=== PATIENT | female | born 1955 | race Caucasian/White ===

== ENCOUNTER 2020-03-20 06:11 | Day surgery (SDC) | payer MEDICARE, OTHER ==
--- OUTSIDE RECORDS SUMMARY | 2020-02-28 19:10 | XMS ---
:1955 Author Organization [facility] Care Team Providers Name Role Phone JEREMY FIORE Unavailable Unavailable PAOLOCORBIN BRIGITTE, BRIGITTE Unavailable Unavailable Re-disclosure Warning The records that you are about to access may contain information from federally- assisted alcohol or drug abuse programs. If such information is present, then the following federally mandated warning applies: This information has been disclosed to you from records protected by federal confidentiality rules (42 CFR part 2). The federal rules prohibit you from making any further disclosure of this information unless further disclosure is expressly permitted by the written consent of the person to whom it pertains or as otherwise permitted by 42 CFR part 2. A general authorization for the release of medical or other information is NOT sufficient for this purpose. The Federal rules restrict any use of the information to criminally investigate or prosecute any alcohol or drug abuse patient.The records that you are about to access may contain highly sensitive health information, the redisclosure of which is protected by Article 27-F of the [facility] Public Health law. If you continue you may haveaccess to information: Regarding HIV / AIDS; Provided by facilities licensed or operated by the [facility] Office of Mental Health; or Provided by the [facility] Office for People With Developmental Disabilities. If such information is present, then the following [facility] mandated warning applies: This information has been disclosed to you from confidential records which are protected by state law. State law prohibits you from making any further disclosure of this information without the specific written consent of the person to whom it pertains, or as otherwise permitted by law. Any unauthorized further disclosure in violation of state law may result in a fine or mcc sentence or both. A general authorization for the release of medical or other information is NOT sufficient authorization for further disclosure. Allergies and Adverse Reactions Type Description Substance Reaction Status Data Source(s ) Drug allergy No Known Drug No Known Drug [facility] No Known No Known Allergies No Known eCW3 ( [place] [facility]) No Known No Known Allergies No Known eCW3 ( [place] [facility]) No Known No Known Allergies No Known eCW3 ( [place] Allergies Allergies [facility]) No Known No Known Allergies No Known eCW3 ( [place] All[facility] Allerg[facility]) No Known No Known Allergies No Known eCW3 ( [place] All[facility] All[facility]) No Known No Known Allergies No Known eCW3 ( [place] Allergies Allergies [facility]) Encounters Encounter Providers Location Date Indications Data Source(s ) Outpatient [facility] 02/08/2019 eCW3 [facility] A28 AM EDT - Care) 02/08/2019 12:00:00 AM EDT (ROV) Regular [facility] 02/01/2019 eCW3 ([facility]) 02/01/2019 12:00:00 AM EDT (SD Sick) Same [facility] 01/10/2019 eCW3 ( [place] [facility] 12[facility]00 [facility] A28 AM EDT - Care) 01/10/2019 12:00:00 AM EDT Outpatient [facility] 12/15/2018 eCW3 ([facility] 12[facility]:00 [facility] A28 AM EDT - Care) 12/15/2018 12:00:00 AM EDT Outpatient Attender: BRIGITTE Ashton 11/04/2018 [place] [facility] 12:07:00 Medical Anay BRIGGSAdmitter: PM EDT BRIGITTE BRIGGSReferrer: JEREMY FIORE Outpatient [facility] 10/25/2018 eCW3 ([facility] 12:00:00 [facility] A28 AM EDT - Care) 10/25/2018 12:00:00 AM EDT Outpatient [facility] 08/17/2018 eCW3 ([facility] 12[facility]:00 [facility] A28 AM EDT - Care) 08/17/2018 12:00:00 AM EDT Medications Medication Brand Start Product Dose Route Administrative Pharmacy dev Indications Reaction Description Data Name Date Form Instructions Instructions Source(s) Diclofenac Diclof 1.0 active Diclofen ac eCW3 Sodium 0.03 enac 2019 {appl Sodium 3 % ( [place] MG/MG Sodium 12:00: icati [facility] Topical Gel 3 % 00 AM on} [facility] Diclofenac EDT Care) Sodium 3 % Diclofenac Diclof 1.0 active Diclofen ac eCW3 Sodium 0.03 enac 2019 {appl Sodium 3 % ( [place] MG/MG Sodium 12:00: icati [facility] Topical Gel 3 % 00 AM on} [facility] Diclofenac EDT Care) Sodium 3 % Diclofenac Diclof 1.0 active Diclofen ac eCW3 Sodium 0.03 enac 2019 {appl Sodium 3 % ( [place] MG/MG Sodium 12:00: icati [facility] Topical Gel 3 % 00 AM on} [facility] Diclofenac EDT Care) Sodium 3 % Diclofenac Diclof 1.0 active Diclofen ac eCW3 Sodium 0.03 enac 2019 {appl Sodium 3 % ( [place] MG/MG Sodium 12:00: icati [facility] Topical Gel 3 % 00 AM on} [facility] Diclofenac EDT Care) Sodium 3 % Ondansetron Ondans 1.0 suspend Ondans etron eCW3 4 MG Oral etron 2018 {tabl ed HCl 4 MG ([facility] Tablet HCl 4 12:00: et_as [facility] Ondansetron MG 00 AM _need Health HCl 4 MG EDT ed} Care) Ranitidine Raniti 1.0 suspend Ranitid ine eCW3 150 MG Oral dine 2018 {tabl ed HCl 150 MG ( [place] Tablet HCl 12:00: et_as [facility] Ranitidine 150 MG 00 AM _need Healt h HCl 150 MG EDT ed} Care) Ondansetron Ondans 1.0 suspend Ondans etron eCW3 4 MG Oral etron 2018 {tabl ed HCl 4 MG ([facility] Tablet HCl 4 12:00: et_as [facility] Ondansetron MG 00 AM _need Health HCl 4 MG EDT ed} Care) Ranitidine Raniti .0 active Ranitidi ne eCW3 150 MG Oral dine 2019 {tabl HCl 150 MG ( [place] Tablet HCl 12:00: et_as [facility] Ranitidine 150 MG 00 AM _need Healt h HCl 150 MG EDT ed} Care) Ondansetron Ondans .0 suspend Ondans etron eCW3 4 MG Oral etron 2019 {tabl ed HCl 4 MG ([facility] Tablet HCl 4 12:00: et_as [facility] Ondansetron MG 00 AM _need Health HCl 4 MG EDT ed} Care) Ranitidine UNK .0 suspend Ranitidin e eCW3 HCl 150 MG 2019 {tabl ed HCl 150 MG ([facility] 12:00: et_as [facility] 00 AM _need Health EDT ed} Care) Ondansetron Ondans .0 suspend Ondans etron eCW3 4 MG Oral etron 2018 {tabl ed HCl 4 MG ([facility] Tablet HCl 4 12:00: et_as [facility] Ondansetron MG 00 AM _need Health HCl 4 MG EDT ed} Care) Ranitidine UNK .0 suspend Ranitidin e eCW3 HCl 150 MG 2019 {tabl ed HCl 150 MG ([facility] 12:00: et_as [facility] 00 AM _need Health EDT ed} Care) Ondansetron Ondans .0 suspend Ondans etron eCW3 4 MG Oral etron 2019 {tabl ed HCl 4 MG ([facility] Tablet HCl 4 12:00: et_as [facility] Ondansetron MG 00 AM _need Health HCl 4 MG EDT ed} Care) Ranitidine Raniti .0 suspend Ranitid ine eCW3 150 MG Oral dine 2019 {tabl ed HCl 150 MG ( [place] Tablet HCl 12:00: et_as [facility] Ranitidine 150 MG 00 AM _need Healt h HCl 150 MG EDT ed} Care) Diclofenac Diclof .0 active Diclofen ac eCW3 Sodium 50 enac 2019 {tabl Sodium 50 mg ( [place] MG Delayed Sodium 12:00: et_wi [facility] Release 50 mg 00 AM th_fo Health Oral Tablet EDT od_or Care) Diclofenac _milk Sodium 50 } mg Diclofenac Diclof .0 active Diclofen ac eCW3 Sodium 50 enac 2019 {tabl Sodium 50 mg ( [place] MG Delayed Sodium 12:00: et_wi [facility] Release 50 mg 00 AM th_fo Health Oral Tablet EDT od_or Care) Diclofenac _milk Sodium 50 } mg Diclofenac Diclof .0 active Diclofen ac eCW3 Sodium 50 enac 2019 {tabl Sodium 50 mg ( [place] MG Delayed Sodium 12:00: et_wi [facility] Release 50 mg 00 AM th_fo Health Oral Tablet EDT od_or Care) Diclofenac _milk Sodium 50 } mg Diclofenac Diclof .0 active Diclofen ac eCW3 Sodium 50 enac 2019 {tabl Sodium 50 mg ( [place] MG Delayed Sodium 12:00: et_wi [facility] Release 50 mg 00 AM th_fo Health Oral Tablet EDT od_or Care) Diclofenac _milk Sodium 50 } mg Diclofenac Diclof .0 active Diclofen ac eCW3 Sodium 50 enac 2019 {tabl Sodium 50 mg ( [place] MG Delayed Sodium 12:00: et_wi [facility] Release 50 mg 00 AM th_fo Health Oral Tablet EDT od_or Care) Diclofenac _milk Sodium 50 } mg Diclofenac Diclof .0 active Diclofen ac eCW3 Sodium 50 enac 2019 {tabl Sodium 50 mg ( [place] MG Delayed Sodium 12:00: et_wi [facility] Release 50 mg 00 AM th_fo Health Oral Tablet EDT od_or Care) Diclofenac _milk Sodium 50 } mg 12 HR Mucine .0 suspend Mucinex 600 eCW3 Guaifenesin x 600 2018 {tabl ed MG ([facility] 600 MG MG 12:00: et_as [facility] Extended 00 AM _need Health Release EST ed} Care) Oral Tablet [Mucinex] Mucinex 600 MG 12 HR Mucine .0 suspend Mucinex 600 eCW3 Guaifenesin x 600 2018 {tabl ed MG ([facility] 600 MG MG 12:00: et_as [facility] Extended 00 AM _need Health Release EST ed} Care) Oral Tablet [Mucinex] Mucinex 600 MG 12 HR Mucine .0 suspend Mucinex 600 eCW3 Guaifenesin x 600 2018 {tabl ed MG ([facility] 600 MG MG 12:00: et_as [facility] Extended 00 AM _need Health Release EST ed} Care) Oral Tablet [Mucinex] Mucinex 600 MG Mucinex 600 Mucine .0 suspend Mucine x 600 eCW3 MG x 600 2018 {tabl ed MG ([place] MG 12:00: et_as [facility] 00 AM _need Health EST ed} Care) 12 HR Mucine .0 suspend Mucinex 600 eCW3 Guaifenesin x 600 2018 {tabl ed MG ([facility] 600 MG MG 12:00: et_as [facility] Extended 00 AM _need Health Release EST ed} Care) Oral Tablet [Mucinex] Mucinex 600 MG 12 HR Mucine .0 suspend Mucinex 600 eCW3 Guaifenesin x 600 2018 {tabl ed MG ([facility] 600 MG MG 12:00: et_as [facility] Extended 00 AM _need Health Release EST ed} Care) Oral Tablet [Mucinex] Mucinex 600 MG Cepacol UNK .0 suspend Cepacol Sore eCW3 Sore Throat 2018 {loze ed Throat ([facility] 15-3.6 MG 12:00: nge_a 15-3.6 MG Ri dayna 00 AM s_nee Health EST ded} Care) Cepacol UNK .0 suspend Cepacol Sore eCW3 Sore Throat 2018 {loze ed Throat ([facility] 15-3.6 MG 12:00: nge_a 15-3.6 MG Ri dayna 00 AM s_nee Health EST ded} Care) Benzocaine Cepaco .0 suspend Cepacol Sore eCW3 15 MG / l Sore 2018 {loze ed Throat ([place] Menthol 3.6 Throat 12:00: nge_a 15-3.6 M G [facility] Oral 15-3.6 00 AM s_nee Health Lozenge MG EST ded} Care) [Cepacol Sore Throat Pain Relief] Cepacol Sore Throat 15-3.6 MG Cepacol UNK .0 suspend Cepacol Sore eCW3 Sore Throat 2018 {loze ed Throat ([facility] 15-3.6 MG 12:00: nge_a 15-3.6 MG Ri dayna 00 AM s_nee Health EST ded} Care) Cepacol UNK .0 suspend Cepacol Sore eCW3 Sore Throat 2018 {loze ed Throat ([facility] 15-3.6 MG 12:00: nge_a 15-3.6 MG Ri dayna 00 AM s_nee Health EST ded} Care) Cepacol UNK .0 suspend Cepacol Sore eCW3 Sore Throat 2018 {loze ed Throat ([facility] 15-3.6 MG 12:00: nge_a 15-3.6 MG Ri dayna 00 AM s_nee Health EST ded} Care) Acetaminoph UNK .0 suspend Acetamin ophe eCW3 en 650 MG 2016 {tabl ed n 650 MG ([facility] 12:00: et_as [facility] 00 AM _need Health EDT ed} Care) Loratadine Clarit .0 suspend Clariti n 10 eCW3 10 MG Oral in 2016 {tabl ed mg ([place] Tablet mg 12:00: et} [facility] [Claritin] 00 AM Health Claritin 10 EDT Care) mg Loratadine Clarit .0 suspend Clariti n 10 eCW3 10 MG Oral in 2016 {tabl ed mg ([place] Tablet mg 12:00: et} [facility] [Claritin] 00 AM Health Claritin 10 EDT Care) mg Acetaminoph UNK .0 suspend Acetamin ophe eCW3 en 650 MG 2017 {tabl ed n 650 MG ([facility] 12:00: et_as [facility] 00 AM _need Health EDT ed} Care) Loratadine Clarit .0 suspend Clariti n 10 eCW3 10 MG Oral in 2016 {tabl ed mg ([place] Tablet mg 12:00: et} [facility] [Claritin] 00 AM Health Claritin 10 EDT Care) mg Acetaminoph UNK .0 active Acetamino phe eCW3 en 650 MG 2017 {tabl n 650 MG ([facility] 12:00: et_as [facility] 00 AM _need Health EDT ed} Care) Acetaminoph UNK .0 active Acetamino phe eCW3 en 650 MG 2017 {tabl n 650 MG ([facility] 12:00: et_as [facility] 00 AM _need Health EDT ed} Care) Loratadine Clarit .0 suspend Clariti n 10 eCW3 10 MG Oral in 2016 {tabl ed mg ([place] Tablet mg 12:00: et} [facility] [Claritin] 00 AM Health Claritin 10 EDT Care) mg Acetaminoph UNK .0 suspend Acetamin ophe eCW3 en 650 MG 2017 {tabl ed n 650 MG ([facility] 12:00: et_as [facility] 00 AM _need Health EDT ed} Care) Loratadine Clarit .0 suspend Clariti n 10 eCW3 10 MG Oral in 2016 {tabl ed mg ([place] Tablet mg 12:00: et} [facility] [Claritin] 00 AM Health Claritin 10 EDT Care) mg Acetaminoph UNK .0 suspend Acetamin ophe eCW3 en 650 MG 2017 {tabl ed n 650 MG ([facility] 12:00: et_as [facility] 00 AM _need Health EDT ed} Care) Loratadine Clarit .0 suspend Clariti n 10 eCW3 10 MG Oral in 2016 {tabl ed mg ([place] Tablet mg 12:00: et} [facility] [Claritin] 00 AM Health Claritin 10 EDT Care) mg COMPRESSION UNK 01/12/ suspend COMPRESS ION eCW3 STOCKINGS 2017 ed STOCKINGS 22 ([facility] 22 MMHG 22 12:00: MMHG 22 mmhg [facility] mmhg 00 AM Health EDT Care) COMPRESSION UNK 01/12/ suspend COMPRESS ION eCW3 STOCKINGS 2017 ed STOCKINGS 22 ([facility] 22 MMHG 22 12:00: MMHG 22 mmhg [facility] mmhg 00 AM Health EDT Care) COMPRESSION UNK 01/12/ suspend COMPRESS ION eCW3 STOCKINGS 2017 ed STOCKINGS 22 ([facility] 22 MMHG 22 12:00: MMHG 22 mmhg [facility] mmhg 00 AM Health EDT Care) COMPRESSION UNK 01/12/ suspend COMPRESS ION eCW3 STOCKINGS 2017 ed STOCKINGS 22 ([facility] 22 MMHG 22 12:00: MMHG 22 mmhg [facility] mmhg 00 AM Health EDT Care) COMPRESSION UNK 01/12/ suspend COMPRESS ION eCW3 STOCKINGS 2017 ed STOCKINGS 22 ([facility] 22 MMHG 22 12:00: MMHG 22 mmhg [facility] mmhg 00 AM Health EDT Care) COMPRESSION UNK 01/12/ suspend COMPRESS ION eCW3 STOCKINGS 2017 ed STOCKINGS 22 ([facility] 22 MMHG 22 12:00: MMHG 22 mmhg [facility] mmhg 00 AM Health EDT Care) Amoxicillin Amoxic 16/ 2.0 suspend Amoxic illin eCW3 500 MG Oral illin 2016 {caps ed 500 mg ([facility] Capsule 500 mg 12:00: ules} [facility] Amoxicillin 00 AM Health 500 mg EDT Care) Amoxicillin Amoxic 2.0 suspend Amoxic illin eCW3 500 MG Oral illin 2016 {caps ed 500 mg ([facility] Capsule 500 mg 12:00: ules} [facility] Amoxicillin 00 AM Health 500 mg EDT Care) Clarithromy Clarit 1.0 suspend Clarit hromyc eCW3 [place] 500 MG hromyc 2016 {tabl ed in 500 mg ( [place] Oral Tablet in 500 12:00: et} R[facility] r Clarithromy mg 00 AM Health [place] 500 mg EDT Care) Amoxicillin Amoxic 16/ 2.0 suspend Amoxic illin eCW3 500 MG Oral illin 2016 {caps ed 500 mg ([facility] Capsule 500 mg 12:00: ules} [facility] Amoxicillin 00 AM Health 500 mg EDT Care) Amoxicillin Amoxic 16/ 2.0 suspend Amoxic illin eCW3 500 MG Oral illin 2016 {caps ed 500 mg ([facility] Capsule 500 mg 12:00: ules} [facility] Amoxicillin 00 AM Health 500 mg EDT Care) Clarithromy Clarit 1.0 suspend Clarit hromyc eCW3 [place] 500 MG hromyc 2016 {tabl ed in 500 mg ( [place] Oral Tablet in 500 12:00: et} [facility] Clarithromy mg 00 AM Health [place] 500 mg EDT Care) Clarithromy Clarit .0 suspend Clarit hromyc eCW3 [place] 500 MG hromyc 2016 {tabl ed in 500 mg ( [place] Oral Tablet in 500 12:00: et} [facility] Clarithromy mg 00 AM Health [place] 500 mg EDT Care) Clarithromy Clarit .0 suspend Clarit hromyc eCW3 [place] 500 MG hromyc 2016 {tabl ed in 500 mg ( [place] Oral Tablet in 500 12:00: et} [facility] Clarithromy mg 00 AM Health [place] 500 mg EDT Care) Amoxicillin Amoxic 2.0 suspend Amoxic illin eCW3 500 MG Oral illin 2016 {caps ed 500 mg ([facility] Capsule 500 mg 12:00: ules} [facility] Amoxicillin 00 AM Health 500 mg EDT Care) Amoxicillin Amoxic 2.0 suspend Amoxic illin eCW3 500 MG Oral illin 2016 {caps ed 500 mg ([facility] Capsule 500 mg 12:00: ules} [facility] Amoxicillin 00 AM Health 500 mg EDT Care) Clarithromy Clarit .0 suspend Clarit hromyc eCW3 [place] 500 MG hromyc 2016 {tabl ed in 500 mg ( [place] Oral Tablet in 500 12:00: et} [facility] Clarithromy mg 00 AM Health [place] 500 mg EDT Care) Clarithromy Clarit .0 suspend Clarit hromyc eCW3 [place] 500 MG hromyc 2016 {tabl ed in 500 mg ( [place] Oral Tablet in 500 12:00: et} [facility] Clarithromy mg 00 AM Health [place] 500 mg EDT Care) Omeprazole Omepra .0 suspend Omepraz ole eCW3 40 MG zole 2015 {caps ed 40 MG ([place] Delayed 40 MG 12:00: ule} [facility] Release 00 AM Health Oral EDT Care) Capsule Melatonin 3 Melato .0 suspend Melato hector 3 eCW3 MG hector 3 2015 {caps ed MG ([place] MG 12:00: ule_i [facility] 00 AM n_the Health EDT _even Care) ing_a s_nee ded_w ith_f ood} Omeprazole Omepra 1.0 suspend Omepraz ole eCW3 40 MG zole 2015 {caps ed 40 MG ([place] Delayed 40 MG 12:00: ule} [facility] Release 00 AM Health Oral EDT Care) Capsule Melatonin 3 Melato 1.0 suspend Melato hector 3 eCW3 MG hector 2015 {caps ed MG ([place] MG 12:00: ule_i [facility] 00 AM n_the Health EDT _even Care) ing_a s_nee ded_w ith_f ood} Melatonin 3 Melato .0 suspend Melato hector 3 eCW3 MG 2015 {caps ed MG ([place] MG 12:00: ule_i [facility] 00 AM n_the Health EDT _even Care) ing_a s_nee ded_w ith_f ood} Melatonin 3 Melato .0 suspend Melato hector 3 eCW3 MG 2015 {caps ed MG ([place] MG 12:00: ule_i [facility] 00 AM n_the Health EDT _even Care) ing_a s_nee ded_w ith_f ood} Omeprazole Omepra .0 suspend Omepraz ole eCW3 40 MG zole 2015 {caps ed 40 MG ([place] Delayed 40 MG 12:00: ule} [facility] Release 00 AM Health Oral EDT Care) Capsule Melatonin 3 Melato .0 suspend Melato hector 3 eCW3 MG hector 2015 {caps ed MG ([place] MG 12:00: ule_i [facility] 00 AM n_the Health EDT _even Care) ing_a s_nee ded_w ith_f ood} Omeprazole Omepra 1.0 suspend Omepraz ole eCW3 40 MG zole 2015 {caps ed 40 MG ([place] Delayed 40 MG 12:00: ule} [facility] Release 00 AM Health Oral EDT Care) Capsule Omeprazole Omepra .0 suspend Omepraz ole eCW3 40 MG zole 2015 {caps ed 40 MG ([place] Delayed 40 MG 12:00: ule} [facility] Release 00 AM Health Oral EDT Care) Capsule Omeprazole Omepra 1.0 suspend Omepraz ole eCW3 40 MG zole 2015 {caps ed 40 MG ([place] Delayed 40 MG 12:00: ule} [facility] Release 00 AM Health Oral EDT Care) Capsule Melatonin 3 Melato 1.0 suspend Melato hector 3 eCW3 MG hector 3 2015 {caps ed MG ([place] MG 12:00: ule_i [facility] 00 AM n_the Health EDT _even Care) ing_a s_nee ded_w ith_f ood} Enalapril Enalap 1.0 active Enalapril e CW3 Maleate 10 ril {tabl Maleate 10 ([facility] MG Oral Maleat et} MG [facility] Tablet e 10 Health Care) benzonatate Tessal 1.0 suspend Tessalon eCW3 100 MG Oral on {caps ed Perles 100 ( [place] Capsule Perles ule_a mg [facility] [Tessalon 100 mg s_nee Health Perles] ded} Care) Tessalon Perles 100 mg Ibuprofen Ibupro suspend Ibuprofen eCW3 400 MG Oral fen ed 400 MG ([facility] Tablet 400 MG [place] [facility]) Ibuprofen Ibupro suspend Ibuprofen eCW3 400 MG Oral fen ed 400 MG ([facility] Tablet 400 MG [facility]) Ibuprofen Ibupro suspend Ibuprofen eCW3 400 MG Oral fen ed 400 MG ([facility] Tablet 400 MG [facility]) Enalapril Enalap 1.0 active Enalapril e CW3 Maleate 10 ril {tabl Maleate 10 ([facility] MG Oral Maleat et} MG [facility] Tablet e 10 Health MG Care) Ibuprofen Ibupro suspend Ibuprofen eCW3 400 MG Oral fen ed 400 MG ([facility] Tablet 400 MG [facility]) benzonatate Tessal 1.0 suspend Tessalon eCW3 100 MG Oral on {caps ed [place]les 100 ( [place] Capsule Perles ule_a mg [facility] [Tessalon 100 mg s_nee Health Perles] ded} Care) Tessalon [place] 100 mg Ibuprofen Ibupro suspend Ibuprofen eCW3 400 MG Oral fen ed 400 MG ([facility] Tablet 400 MG [facility]) benzonatate Tessal 1.0 suspend Tessalon eCW3 100 MG Oral on {caps ed [place] 100 ( [place] Capsule Perles ule_a mg [facility] [Tessalon 100 mg s_nee Health Perles] ded} Care) Tessalon [place] 100 mg Ibuprofen Ibupro suspend Ibuprofen eCW3 400 MG Oral fen ed 400 MG ([facility] Tablet 400 MG [facility]) benzonatate Tessal 1.0 suspend Tessalon eCW3 100 MG Oral on {caps ed [place] 100 ( [place] Capsule Perles ule_a mg [facility] [Tessalon 100 mg s_nee Health Perles] ded} Care) Tessalon [place] 100 mg Enalapril Enalap 1.0 active Enalapril e CW3 Maleate 10 ril {tabl Maleate 10 ([facility] MG Oral Maleat et} MG [facility] Tablet e 10 Health MG Care) benzonatate Tessal 1.0 suspend Tessalon eCW3 100 MG Oral on {caps ed [place] 100 ( [place] Capsule Perles ule_a mg [facility] [Tessalon 100 mg s_nee Health Perles] ded} Care) Tessalon Perles 100 mg Enalapril Enalap 1.0 active Enalapril e CW3 Maleate 10 ril {tabl Maleate 10 ([facility] MG Oral Maleat et} mg [facility] Tablet e 10 Health Enalapril mg Care) Maleate 10 mg Enalapril Enalap 1.0 active Enalapril e CW3 Maleate 10 ril {tabl Maleate 10 ([facility] MG Oral Maleat et} MG [facility] Tablet e 10 Health MG Care) benzonatate Tessal 1.0 suspend Tessalon eCW3 100 MG Oral on {caps ed [place] 100 ( [place] Capsule Perles ule_a mg [facility] [Tessalon 100 mg s_nee Health Perles] ded} Care) Tessalon [place]les 100 mg Enalapril Enalap 1.0 active Enalapril e CW3 Maleate 10 ril {tabl Maleate 10 ([facility] MG Oral Maleat et} mg [facility] Tablet e 10 Health Enalapril mg Care) Maleate 10 mg Insurance Providers Payer name Policy type Policy ID Covered Covered democrat's Policy P jackie / Coverage democrat ID relationship to Michael Inf ormation type michael O FLAVIA Dimple [id number] 01 [id number] [employer] Problems, Conditions, and Diagnoses Code Display Name Description Problem Type Effective Data Dates Source(s) G89.29 Other chronic pain Other chronic pain Problem 0 eCW3 ([place] 12:00:00 AM [facility]) B35.1 Dermatophytosis of Dermatophytosis of Problem 8 eCW3 ([place] nail nail 12:00:00 AM [facility]) R94.6 Abnormal TSH Abnormal TSH Problem 01/12/2017 eCW3 ([facility] R94.6 Abnormal TSH Abnormal TSH Problem 01/12/2017 eCW3 ([facility] K21.9 Gastroesophageal Gastroesophageal Problem 10/20/2016 eC W3 ([place] reflux disease, reflux disease, 12:00:00 AM [facility] esophagitis presence esophagitis presence EDT Care) not specified not specified I10 Hypertension HTN (hypertension) Problem 11/14/2015 eCW3 ([place] [facility] I10 Hypertension HTN (hypertension) Problem 11/14/2015 eCW3 ([place] 12:00:00 AM [facility]) M25.562 Pain in left knee PAIN IN LEFT KNEE Diagnosis 11/04/2018 [facility] 12:07:00 PM [facility] Surgeries/Procedures Procedure Description Date Indications Data Source(s) Administration of 08/17/2018 eCW3 ([facility] [place] Medication 12:00:00 AM [facility]) Social History Code Duration Value Status Description Data Source(s ) Smoking 11/02/2019 Never Smoker completed Never Smoker eCW3 ([facility] 12:00:00 AM [facility]) Smoking 11/02/2019 Never Smoker completed Never Smoker eCW3 ([facility] 12:00:00 AM [facility]) Smoking 11/02/2019 Never Smoker completed Never Smoker eCW3 ([facility] 12:00:00 AM [facility]) Smoking 11/02/2019 Never Smoker completed Never Smoker eCW3 ([facility] 12:00:00 AM [facility]) Smoking 02/08/2019 Never Smoker completed Never Smoker eCW3 ([facility] 12:00:00 AM [facility]) Smoking 10/25/2018 Never Smoker completed Never Smoker eCW3 ([facility] 12:00:00 AM [facility]) Never Smoker completed Never Smoker eCW3 ([facility]) Never Smoker completed Never Smoker eCW3 ([facility]) Never Smoker completed Never Smoker eCW3 ([facility]) Never Smoker completed Never Smoker eCW3 ([facility]) Smoking Unknown if ever completed Unknown if ever [place] smoked [facility] Never Smoker completed Never Smoker eCW3 ([facility]) Never Smoker completed Never Smoker eCW3 ([facility]) Vital Signs ID Date Data Source UNK Name Value Range Interpretation Code Description Data Source(s) Diastolic blood 74 mm[Hg] 74 mm[Hg] eCW3 ([facility]) Systolic blood 135 mm[Hg] 135 mm[Hg] eCW3 ([facility]) Body temperature 98.6 [degF] 98.6 [degF] eCW3 ( [facility]) Heart rate 18 /min 18 /min eCW3 ([facility]) Body mass index 30.49 kg/m2 30.49 kg/m2 eCW3 ([facility] (BMI) [Ratio] [facility]) Body weight 151.0 151.0 [lb_av] eCW3 ([facility] on [lb_av] [facility]) Body height 59 [in_i] 59 [in_i] eCW3 ([facility]) Diastolic blood 82 mm[Hg] 82 mm[Hg] eCW3 ([facility] [facility] Systolic blood 175 mm[Hg] 175 mm[Hg] eCW3 ([facility]) Body temperature 99.1 [degF] 99.1 [degF] eCW3 ( [facility]) Heart rate 20 /min 20 /min eCW3 ([facility]) Body mass index 30.90 kg/m2 30.90 kg/m2 eCW3 ([facility] (BMI) [Ratio] [facility]) Body weight 153 [lb_av] 153 [lb_av] [facility] Body height 59 [in_i] 59 [in_i] eCW3 ([facility]) Diastolic blood 78 mm[Hg] 78 mm[Hg] eCW3 ([facility]) Systolic blood 161 mm[Hg] 161 mm[Hg] [facility]CW3 ([facility]) Body temperature 97.8 [degF] 97.8 [degF] eCW3 ( [facility]) Heart rate 18 /min 18 /min eCW3 ([facility]) Body mass index 30.29 kg/m2 30.29 kg/m2 eCW3 ([facility] (BMI) [Ratio] [facility]) Body weight 150 [lb_av] 150 [lb_av] [facility] ([facility]) Body height 59 [in_i] 59 [in_i] eCW3 ([facility]) Diastolic blood 56 mm[Hg] 56 mm[Hg] eCW3 ([facility]) Systolic blood 89 mm[Hg] 89 mm[Hg] eCW3 ([facility]) Body temperature 98.2 [degF] 98.2 [degF] eCW3 ( [facility]) Heart rate 20 /min 20 /min eCW3 ([facility]) Body mass index 30.58 kg/m2 30.58 kg/m2 eCW3 ([facility] (BMI) [Ratio] [facility]) Body weight 151.4 151.4 [lb_av] eCW3 ([facility] [lb_av] [facility]) Body height 59 [in_i] 59 [in_i] eCW3 ([facility]) Diastolic blood 71 mm[Hg] 71 mm[Hg] eCW3 ([facility]) Systolic blood 129 mm[Hg] 129 mm[Hg] eCW3 ([facility]) Body temperature 97.4 [degF] 97.4 [degF] eCW3 ( [facility]) Heart rate 20 /min 20 /min eCW3 ([facility]) Body mass index 30.29 kg/m2 30.29 kg/m2 eCW3 ([facility] (BMI) [Ratio] [facility]) Body weight 150 [lb_av] 150 [lb_av] [facility] ([facility]) Body height 59 [in_i] 59 [in_i] eCW3 ([facility]) Diastolic blood 78 mm[Hg] 78 mm[Hg] eCW3 ([facility]) Systolic blood 128 mm[Hg] 128 mm[Hg] eCW3 ([facility]) Body temperature 100.5 [degF] 100.5 [degF] eCW3 ([facility]) Heart rate 20 /min 20 /min eCW3 ([facility]) Body mass index 30.70 kg/m2 30.70 kg/m2 eCW3 ([facility] (BMI) [Ratio] [facility]) Body weight 152 [lb_av] 152 [lb_av] eCW3 ([facility]) Body height 59 [in_i] 59 [in_i] eCW3 ([facility]) Patient Treatment Plan of Care Planned Activity Planned Date Details Description Data Source (s) Diclofenac Sodium 0.03 11/02/2019 12:00:00 eCW3 ([facility] MG/MG Topical Gel [facility]) Diclofenac Sodium 0.03 11/02/2019 12:00:00 eCW3 ([facility] MG/MG Topical Gel [facility]) Diclofenac Sodium 0.03 11/02/2019 12:00:00 eCW3 ([facility] MG/MG Topical Gel [facility]) Diclofenac Sodium 0.03 11/02/2019 12:00:00 eCW3 ([facility] MG/MG Topical Gel [facility]) Diclofenac Sodium 50 MG 10/25/2018 12:00:00 eCW3 ([facility] Delayed Release Oral [facility]) Tablet Acetaminophen 650 MG 03/22/2017 12:00:00 eCW3 (Critical access hospital) Enalapril Maleate 10 MG eCW3 ([facility] Oral Tablet [facility]) Enalapril Maleate 10 MG eCW3 ([facility]) Enalapril Maleate 10 MG eCW3 ([facility] Oral Tablet [facility]) Enalapril Maleate 10 MG eCW3 ([facility] Tablet [facility]) Enalapril Maleate 10 MG eCW3 ([facility])
[2020-03-05 14:58] VITALS: BMI 29.2
--- OUTSIDE RECORDS SUMMARY | 2020-03-20 06:15 | XMS ---
:1955 Author Organization [facility] Support Name Relationship Address Phone UE Unavailable Unavailable Unavailable ROLANDO ZUÑIGA DAUGHTER [address] [place] [id number] ANNA ZHOU DAUGHTER [address] PH [phone] [place] [id number] GLORIA ZHOU DA Unavailable - Unavailable Unavailable Unavailable SABRINA ALVAREZ DA Unavailable [place] [address] ANNA ZHOU Unavailable [address] Unavailable [place] [id number] Re-disclosure Warning The records that you are [...] is protected by Article 27-F of the [facility] Public Health law. If you continue you may haveaccess to information: Regarding HIV / AIDS; Provided by facilities licensed or operated by the [facility] Office of Mental Health; or Provided by the [facility] Office for People With Developmental Disabilities. If such information is present, then the following [facility] mandated warning applies: This information has been [...] law may result in a fine or nursing home sentence or both. A general authorization for the release of medical or other information is NOT sufficient authorization for further disclosure. Encounters Encounter Providers Location Date Indications Data Source(s ) Outpatient [facility] 02/08/2019 eCW3 ([facility] 12:00:00 AM [facility] EDT - Care) 02/08/2019 12:00:00 AM EDT (ROV) Regular [facility] 02/01/2019 eCW3 ([facility] 12:00:00 AM [facility] EDT - Care) 02/01/2019 12:00:00 AM EDT Medications Medication Brand Start Product Dose Route Administrative Pharmacy [facility] Indications Reaction Description Data Name Date Form Instructions Instructions Source(s) Diclofenac Diclof .0 active Diclofen ac eCW3 Sodium 0.03 2019 {appl Sodium 3 % ( [facility] MG/MG Sodium 12:00: [facility] Top[facility] 3 % 00 AM on} Health Diclofenac EDT Care) Sodium 3 % Diclofenac Diclof .0 active Diclofen ac eCW3 Sodium 0.03 2019 {appl Sodium 3 % ( [facility] MG/MG Sodium 12:00: [facility] Top[facility] 3 % 00 AM on} Health Diclofenac EDT Care) Sodium 3 % Diclofenac Diclof .0 active Diclofen ac eCW3 Sodium 0.03 2019 {appl Sodium 3 % ( [facility] MG/MG Sodium 12:00: [facility] [place] Topical Gel 3 % 00 AM on} Health Diclofenac EDT Care) Sodium 3 % Diclofenac Diclof .0 active Diclofen ac eCW3 Sodium 0.03 2019 {appl Sodium 3 % ( [facility] MG/MG Sodium 12:00: [facility] Topical [facility] 3 % 00 AM on} Health Diclofenac EDT Care) Sodium 3 % Insurance Providers Payer name Policy type Policy ID Covered Covered alliance party's Policy P jackie / Coverage alliance party ID relationship to Michael Inf ormation type michael FLAVIA [id number] 500 MEDICARE ADV PLAN MEDICAID [id number] SP [id number] FLAVIA [id number] SP [id number] 500 MEDICARE ADV PLAN O FLAVIA O [id number] ESSENTIALS- COMMERCIAL Problems, Conditions, and Diagnoses Code Display Name Description Problem Type Effective Dates Data Source(s) G89.29 Other chronic Other chronic pain Problem 11/02/2019 eCW 3 ([place] [facility] 12:00:00 AM [facility]) Results ID Date Data Source [id number] 03/16/2020 12:59:00 PM EDT [facility] Name Value Range Interpretation Description Data Sup porting Code Source(s) Document(s ) SARS [facility] coronavirus 2 RNA This lab was ordered by SOLANGE FLORENTINO and reported by [facility]. Procedure Social History Code Duration Value Status Description Data Source(s ) Smoking 11/02/2019 12:00:00 Never Smoker completed Never Smoker e CW3 ([facility]) Smoking 11/02/2019 12:00:00 Never Smoker completed Never Smoker e CW3 ([facility]) Smoking 11/02/2019 12:00:00 Never Smoker completed Never Smoker e CW3 ([facility]) Smoking 11/02/2019 12:00:00 Never Smoker completed Never Smoker e CW3 ([facility]) Smoking 02/08/2019 12:00:00 Never Smoker completed Never Smoker e CW3 ([facility]) Vital Signs ID Date Data Source UNK Name Value Range Interpretation Code Description Data Source(s) Diastolic blood 74 mm[Hg] 74 mm[Hg] eCW3 ([facility]) Systolic blood 135 mm[Hg] 135 mm[Hg] eCW3 ([facility]) Body temperature 98.6 [degF] 98.6 [degF] eCW3 ( [facility]) Heart rate 18 /min 18 /min eCW3 ([facility]) Body mass index 30.49 kg/m2 30.49 kg/m2 eCW3 ([facility] (BMI) [Ratio] [facility]) Body weight 151.0 151.0 [lb_av] eCW3 ([facility] [lb_av] [facility]) Body height 59 [in_i] 59 [in_i] eCW3 ([facility]) Diastolic blood 82 mm[Hg] 82 mm[Hg] eCW3 ([facility]) Systolic blood 175 mm[Hg] 175 mm[Hg] eCW3 ([facility] on pressure [facility]) Body temperature 99.1 [degF] 99.1 [degF] eCW3 ( [facility]) Heart rate 20 /min 20 /min eCW3 ([facility]) Body mass index 30.90 kg/m2 30.90 kg/m2 eCW3 ([facility] (BMI) [Ratio] [facility]) Body weight 153 [lb_av] 153 [lb_av] eCW3 ([facility]) Body height 59 [in_i] 59 [in_i] eCW3 ([facility]) Patient Treatment Plan of Care Planned Activity Planned Date Details Description Data Source (s) Diclofenac Sodium 0.03 11/02/2019 12:00:00 eCW3 ([facility] MG/MG Topical Gel AM EDT [facility]) Diclofenac Sodium 0.03 11/02/2019 12:00:00 eCW3 ([facility] MG/MG Topical Gel AM EDT [employer] [facility]) Diclofenac Sodium 0.03 11/02/2019 12:00:00 eCW3 ([facility] MG/MG Topical Gel AM EDT [employer] [facility]) Diclofenac Sodium 0.03 11/02/2019 12:00:00 eCW3 ([facility] MG/MG Topical Gel AM EDT [employer] [facility])
[2020-03-20] MEDS ORDERED: LOCK ITEM NR ONE (06:34)
[2020-03-20] MEDS ORDERED: MIDAZOLAM HCL 2 MG/2 ML SINGLE DOSE VIAL ONE ×2 (06:52→08:17)
[2020-03-20] MEDS ORDERED: BUPIVACAINE LIPOSOME/PF (EXPAREL) 266 MG/20 ML VIAL ONE (06:52)
[2020-03-20] MEDS ORDERED: SODIUM CHLORIDE 0.9% P/F 10 ML VIAL IJ ONE (06:52)
[2020-03-20] MEDS ORDERED: ePHEDrine SULFATE 50 MG/1 ML AMPULE ONE (08:16)
[2020-03-20] MEDS ORDERED: SUCCINYLCHOLINE CHLORIDE 200 MG/10 ML SYRINGE ONE (08:17)
[2020-03-20] MEDS ORDERED: PROPOFOL 20 ML ONE ×3 (08:17)
[2020-03-20] MEDS ORDERED: ceFAZolin SODIUM 1 GM VIAL ONE (08:21)
[2020-03-20] MEDS ORDERED: TRANEXAMIC ACID 1000 MG/10 ML VIAL ONE ×2 (08:21→09:59)
[2020-03-20] MEDS ORDERED: DEXAMETHASONE SOD PHOSPHATE 4 MG/1 ML VIAL ONE (08:21)
[2020-03-20] MEDS ORDERED: ONDANSETRON 4 MG/2 ML VIAL ONE (08:21)
[2020-03-20] MEDS ORDERED: VANCOMYCIN 1,000 MG VIAL (RESTRICTED TO ID ONLY) ONE (08:31)
[2020-03-20] MEDS ORDERED: BUPIVICAINE 0.25%/MORPH PF/KETOROLAC - 51ML DISP.SYRINGE IA ONE ×2 (09:29→09:39)
[2020-03-20] MEDS ORDERED: VANCOMYCIN 1,000 MG VIAL (RESTRICTED TO ID ONLY) IVPB ONE (09:54)
[2020-03-20] MEDS ORDERED: oxyCODONE HCL 5 MG TABLET PO PRN ×2 (10:39)
[2020-03-20] MEDS ORDERED: ONDANSETRON 4 MG/2 ML VIAL IVPUSH PRN ×2 (10:39→11:13)
[2020-03-20] MEDS ORDERED: PROMETHAZINE HCL 25 MG/1 ML VIAL IVPUSH PRN (10:39)
[2020-03-20] MEDS ORDERED: ACETAMINOPHEN 325 MG TABLET (FP) PO SCH (10:45)
[2020-03-20] MEDS ORDERED: MAG HYDROX/AL HYDROX/SIMETH 30 ML UNIT-DOSE CUP PO PRN (11:13)
[2020-03-20] MEDS ORDERED: LACTATED RINGERS SOLUTION 1,000 ML IV SCH (11:13)
--- NOTE | 2020-03-20 11:24 | OP ---
DATE OF OPERATION: 03/20/2020 SURGEON: Yelena Hampton MD BASKET MAKER: SHAGUFTA Liao PREOPERATIVE DIAGNOSIS: Severe osteoarthritis left knee. POSTOPERATIVE DIAGNOSIS: Severe osteoarthritis left knee. PROCEDURE: Left total knee arthroplasty with robotic assistance. ANESTHESIA: Regional and spinal. ESTIMATED BLOOD LOSS: Minimal. TOURNIQUET TIME: 89 minutes at 300 mmHg. IMPLANTS USED: Franky Triathlon total knee posterior stabilized size 3 femur, 2 tibia with an 11-mm total stabilized polyethylene and 27-mm symmetric patella polyethylene. DRAINS: None. COMPLICATIONS: None. DISPOSITION: Stable to the recovery room following the procedure. INDICATIONS: This is a 64-year-old woman with severe pain and dysfunction related to her left knee osteoarthritis that has been refractory to conservative measures including activity restrictions, physical therapy, medications. She has significant disability and pain related to her activities of daily living and wishes at this point to proceed with an elective total knee arthroplasty. I had a thorough discussion of the risks and benefits with the patient regarding this treatment through a [place] translation including infection, stiffness, fracture, neurovascular injury, instability. She understands and wishes to proceed with this. Preoperative planing was performed for the MAKOplasty and CT scan. DETAILS OF PROCEDURE: The patient was identified in the preoperative area. She underwent a regional block. She was taken to the operating room and on the operating room table sitting up she was given a spinal anesthetic. She was then placed supine. The left knee and lower extremity were prepped and draped in standard sterile fashion with a nonsterile tourniquet on the left thigh. She received 2 g of Ancef IV. She received 1 g of tranexamic acid during the incision and another during closure. The Esmarch was used to exsanguinate the limb. The tourniquet was inflated to 300 mmHg. With the knee in approximately 70 degrees of flexion, 2 pins were placed in the femur percutaneously and 2 in the tibia percutaneously for the femoral and tibial arrays respectively. A longitudinal incision was then made in the midline. Then a midvastus arthrotomy performed. The femoral and tibial checkpoints were placed and registration was performed. The plan was checked and it did not require adjustments. The robotic arm was then used to do the femur and tibial cuts. Prior to that, osteophytes were removed which was done prior to assessing the plan for range of motion and stability. Once the cuts were made, the posterior soft tissues were excised under direct visualization. The box cut was made in the appropriate position and a trial implant was placed with a 9-mm trial polyethylene. The knee came into full extension and there was increased valgus laxity with the knee in extension with the 9-mm polyethylene. The patella was prepared. It was 20 mm thick and 9 mm was cut. The patella sized to size 27 and so the implant was used as a trial and tracking was good. The trochlea appeared just limited lateral release was performed to improve the tracking slightly. Trial implants were removed and then cemented into place. The tibia followed by the femur and then patella. All excess cement was removed. Trial 9-mm patella polyethylene was placed while the cement cured. Periarticular tissues were injected with a combination of bupivacaine, Toradol, and morphine with saline. The pins were removed for the arrays and those incisions were irrigated and then closed with nylon suture. Once the cement was cured, an 11-mm polyethylene was trialed and noted to have improved stability with valgus stressing. A total stabilized polyethylene implant was placed and the locking mechanism engaged. The knee came into full extension and the patella tracked well. There was good final balancing varus valgus stress. The wound was copiously irrigated with pulsatile lavage. Then 1 g of vancomycin powder was placed in the incision. The arthrotomy was closed with number 1 Vicryl suture. The skin was closed with 2-0 Vicryl and any. The tourniquet was let down during closure. Sterile dressings were applied. X-ray was taken in the room. A knee brace was then placed. She was taken to the recovery room in stable condition. Diane Isaacs, physician triage assistant, was required for the case as no other physician was available and her involvement was critical for all portions of the case from incision, bone cuts, manipulation of the knee, and closure. YELENA HAMPTON M.D. [id number]
--- NOTE | 2020-03-20 12:39 | HP ---
CHIEF COMPLAINT: Left knee pain Ortho: Dr. Sujit Hampton HISTORY OF PRESENT ILLNESS: 64 year-old female with a PMH significant for HTN, gastritis, and OA left knee s/p left total knee arthroplasty with robotic assistance today with Dr. Hampton. Recent Travel: No PAST MEDICAL HISTORY: Hypertension Osteoarthritis Gastritis PAST SURGICAL HISTORY: Cholecystectomy Umbilical hernia repair Total right knee replacement Social History: Smoking: Alcohol: no Drugs: no Family history: father prostate cancer; mother liver cancer; sibling with DMII Allergies No Known Drug Allergies Allergy (Verified 03/20/20 06:33) HOME MEDICATIONS: Home Medications Medication Instructions Recorded Enalapril Maleate [Vasotec -] 10 mg PO DAILY 03/20/20 REVIEW OF SYSTEMS CONSTITUTIONAL: Absent: fever, chills, diaphoresis, generalized weakness, malaise, loss of appetite, weight change HEENT: Absent: rhinorrhea, nasal congestion, throat pain, throat swelling, difficulty swallowing, mouth swelling, ear pain, eye pain, visual changes CARDIOVASCULAR: Absent: chest pain, syncope, palpitations, irregular heart rate, lightheadedness, peripheral edema RESPIRATORY: Absent: cough, shortness of breath, dyspnea with exertion, orthopnea, wheezing, stridor, hemoptysis GASTROINTESTINAL: Absent: abdominal pain, abdominal distension, nausea, vomiting, diarrhea, constipation, melena, hematochezia GENITOURINARY: Absent: dysuria, frequency, urgency, hesitancy, hematuria, flank pain, genital pain MUSCULOSKELETAL: Absent: myalgia, arthralgia, joint swelling, back pain, neck pain SKIN: Absent: rash, itching, pallor HEMATOLOGIC/IMMUNOLOGIC: Absent: easy bleeding, easy bruising, lymphadenopathy, frequent infections ENDOCRINE: Absent: unexplained weight gain, unexplained weight loss, heat intolerance, cold intolerance NEUROLOGIC: Absent: headache, focal weakness or paresthesias, dizziness, unsteady gait, seizure, mental status changes, bladder or bowel incontinence PSYCHIATRIC: Absent: anxiety, depression, suicidal or homicidal ideation, hallucinations. PHYSICAL EXAMINATION Vital Signs - 24 hr 03/20/20 03/20/20 03/20/20 06:33 10:19 10:24 Temperature 99 F 98.6 F 98.6 F Pulse Rate 66 96 H 88 Respiratory 18 18 20 Rate Blood Pressure 136/72 105/49 L 112/51 L O2 Sat by Pulse 98 99 100 Oximetry (%) 03/20/20 03/20/20 03/20/20 10:29 10:34 10:39 Temperature Pulse Rate 84 83 82 Respiratory 17 16 18 Rate Blood Pressure 107/51 L 108/48 L 112/83 O2 Sat by Pulse 100 100 100 Oximetry (%) 03/20/20 03/20/20 03/20/20 10:54 11:09 11:24 Temperature Pulse Rate 77 78 83 Respiratory 16 18 16 Rate Blood Pressure 105/51 L 108/49 L 112/50 L O2 Sat by Pulse 100 100 99 Oximetry (%) 03/20/20 11:37 Temperature 98.6 F Pulse Rate 83 Respiratory 16 Rate Blood Pressure 112/50 L O2 Sat by Pulse 99 Oximetry (%) GENERAL: Awake, alert, and fully oriented, in no acute distress. LUNGS: Breath sounds equal, clear to auscultation bilaterally. No wheezes, and no crackles. No accessory muscle use. HEART: Regular rate and rhythm, normal S1 and S2 ABDOMEN: Soft, nontender, not distended UPPER EXTREMITIES: 2+ pulses, warm, well-perfused. No cyanosis. No clubbing. No peripheral edema. LLE: surgical dressings c/d/i, +flex/extend toes, sensory intact NEUROLOGICAL: Cranial nerves II-XII intact. Normal speech. Pre op Hgb 11.2 BUN 14 Cr 0.6 Intra op cefazolin 2g x 1 LR 1.1L ASSESSMENT/PLAN: 64 year-old female with a PMH significant for HTN, gastritis, and OA left knee s/p left total knee arthroplasty with robotic assistance today with Dr. Hampton. Left total knee arthroplasty --POD #0 --perioperative antibiotics per surgery --pain management per surgery --lovenox 40mg daily --protonix --bowel regimen Hypertension --continue enalapril Gastritis --protonix FEN Fluids: LR@75mL/hr Electrolytes: replete as indicated Nutrition: regular diet DVT prophylaxis: OOB, ambulation, SCDs, TEDs, subq lovenox Physical therapy Dispo: continues to require inpatient care. Full code. Family Medical History Family History: As Documented Visit type - Medication Review Med list reviewed for High Risk Meds patients 65 and older: Yes - Emergency Visit Emergency Visit: No - New Patient This patient is new to me today: Yes Date on this admission: 03/22/20 - Critical Care Critical Care patient: No
[2020-03-20] MEDS: oxyCODONE HCL 5 MG TABLET PO PRN ×2 (15:12→21:55)
[2020-03-20] MEDS: CEFAZOLIN 2 GM/D5W 2 GM/50 ML ML IVPB SCH (15:12)
[2020-03-20] MEDS: GABAPENTIN 300 MG CAPSULE PO SCH (21:52)
[2020-03-20] MEDS: SENNOSIDES/DOCUSATE COMBO (SENNA PLUS) TABLET (UD) PO SCH (21:52)
[2020-03-21] MEDS: CEFAZOLIN 2 GM/D5W 2 GM/50 ML ML IVPB SCH (00:04)
[2020-03-21] MEDS: ACETAMINOPHEN 325 MG TABLET (FP) PO PRN ×3 (07:17→21:18)
[2020-03-21] MEDS: oxyCODONE HCL 5 MG TABLET PO PRN ×2 (07:17→17:12)
--- NOTE | 2020-03-21 07:58 | PN ---
Progress Note, Physician Chief Complaint: no c/o, pain controlled - Current Medication List Current Medications: Active Medications Acetaminophen (Tylenol -) 650 mg PO Q4H PRN PRN Reason: PAIN LEVEL 1 - 3 Last Admin: 03/21/20 07:17 Dose: 650 mg Documented by: Al Hydroxide/Mg Hydroxide (Mylanta Oral Suspension -) 30 ml PO Q4H PRN PRN Reason: DYSPEPSIA Enalapril Maleate (Vasotec -) 10 mg PO DAILY [facility] Enoxaparin Sodium (Lovenox -) 40 mg SQ DAILY [facility] Gabapentin (Neurontin -) 300 mg PO BID [facility] Stop: 03/23/20 21:59 Last Admin: 03/20/20 21:52 Dose: 300 mg Documented by: Multivitamins/Minerals/Vitamin C (Tab-A-Vit -) 1 tab PO DAILY [facility] Ondansetron HCl (Zofran Injection) 4 mg IVPUSH Q6H PRN PRN Reason: NAUSEA Oxycodone HCl (Roxicodone -) 5 mg PO Q4H PRN PRN Reason: PAIN LEVEL 4 - 6 Last Admin: 03/21/20 07:17 Dose: 5 mg Documented by: Oxycodone HCl (Roxicodone -) 10 mg PO Q4H PRN PRN Reason: PAIN LEVEL 7 - 10 Last Admin: 03/20/20 15:12 Dose: 10 mg Documented by: Pantoprazole Sodium (Protonix -) 40 mg PO DAILY [facility] Promethazine HCl (Phenergan Injection -) 12.5 mg IVPUSH Q6H PRN PRN Reason: NAUSEA-FOR RESCUE AFTER 15 MIN Senna/Docusate Sodium (Pericolace -) 2 tablet PO BID [facility] Last Admin: 03/20/20 21:52 Dose: 2 tablet Documented by: - Objective Vital Signs: Vital Signs Temperature 99.1 F 03/21/20 06:02 Pulse Rate 77 03/21/20 06:02 Respiratory Rate 18 03/21/20 06:02 Blood Pressure 144/57 L 03/21/20 06:02 O2 Sat by Pulse Oximetry (%) 100 03/21/20 06:02 Additional Findings/Remarks: L knee dressing minimal drainage, DNVI Problem List - Problems (1) Total knee replacement status Assessment/Plan: POD 1 L TKA Code(s): Z96.659 - PRESENCE OF UNSPECIFIED ARTIFICIAL KNEE JOINT Assessment/Plan POD 1 L TKA PT/OT, WBAT, lovenox ASA on D/C plan to home tommorrow
[2020-03-21 08:20] LABS: CALCIUM 8.6 mg/dl (8.5-10); CREATININE 0.6 mg/dl (0.55-1.3); MAGNESIUM 1.8 mg/dL (1.8-2.4); POTASSIUM 4.3 mmol/L (3.5-5.1)
[2020-03-21 08:25] LABS: HEMOGLOBIN 8.8 GM/dl (10.7-15.3); MCH 28.7 pg (25.7-33.7); MCHC 32.8 g/dl (32.0-36.0); MEAN CELL VOLUME 87.7 fl (80-96); MEAN PLT VOLUME 8.3 fl (7.5-11.1); PLATELET COUNT 260 K/MM3 (134-434); RBC 3.08 M/mm3 (3.60-5.2); RDW 13.9 % (11.6-15.6); WHITE BLOOD COUNT 8.8 K/mm3 (4.0-10.8)
--- NOTE | 2020-03-21 11:10 | PN ---
Progress Note (short form) - Note Progress Note: Post op day#1.S/P Left total knee replacement under spinal with adductor canal and selective tibial N block uneventful.Patient stable and c/o little pain for which she is on medication.No any anesthesia related problem.Patient Dc from the anesthesia care.
[2020-03-21] MEDS: ENALAPRIL MALEATE 10 MG TABLET PO SCH (11:46)
[2020-03-21] MEDS: ENOXAPARIN NA (PORCINE) 40 MG/0.4 ML DISP.SYRIN SQ SCH (11:46)
[2020-03-21] MEDS: GABAPENTIN 300 MG CAPSULE PO SCH ×2 (11:46→21:18)
[2020-03-21] MEDS: PANTOPRAZOLE 40 MG TABLET PO SCH (11:46)
[2020-03-21] MEDS: MULTIVITAMINS (DAILY MVI) TABLET (FP) PO SCH (11:46)
[2020-03-21] MEDS: SENNOSIDES/DOCUSATE COMBO (SENNA PLUS) TABLET (UD) PO SCH ×2 (11:46→21:18)
--- NOTE | 2020-03-21 15:34 | PN ---
Physical Exam: SUBJECTIVE: Patient seen and examined OBJECTIVE: Vital Signs Period Temp Pulse Resp BP Sys/Sácnhez Pulse Ox Last 24 Hr 98.3 F-99.6 F 70-77 18-18 104-144/47-61 98-100 GENERAL: Awake, alert, and fully oriented, in no acute distress. LUNGS: Breath sounds equal, clear to auscultation bilaterally. No wheezes, and no crackles. No accessory muscle use. HEART: Regular rate and rhythm, normal S1 and S2 ABDOMEN: Soft, nontender, not distended UPPER EXTREMITIES: 2+ pulses, warm, well-perfused. No cyanosis. No clubbing. No peripheral edema. LLE: surgical dressings c/d/i, +flex/extend toes, sensory intact NEUROLOGICAL: Cranial nerves II-XII intact. Normal speech. Laboratory Results - last 24 hr 03/21/20 03/21/20 07:38 07:38 WBC 8.8 RBC 3.08 L Hgb 8.8 L Hct 27.0 L MCV 87.7 MCH 28.7 MCHC 32.8 RDW 13.9 Plt Count 260 MPV 8.3 Sodium 137 Potassium 4.3 Chloride 104 Carbon Dioxide 24 Anion Gap 9 BUN 13.0 Creatinine 0.6 Est GFR (CKD-EPI)AfAm 110.08 Est GFR (CKD-EPI)NonAf 94.98 Random Glucose 96 Calcium 8.6 Magnesium 1.8 Active Medications Generic Name Dose Route Start Last Admin Trade Name Freq PRN Reason Stop Dose Admin Acetaminophen 650 mg 03/20/20 16:00 03/21/20 07:17 Tylenol - PO 650 mg Q4H PRN Administration PAIN LEVEL 1 - 3 Al Hydroxide/Mg Hydroxide 30 ml 03/20/20 11:13 Mylanta Oral Suspension - PO Q4H PRN DYSPEPSIA Enalapril Maleate 10 mg 03/21/20 10:00 03/21/20 11:46 Vasotec - PO 10 mg DAILY REA Administration Enoxaparin Sodium 40 mg 03/21/20 10:00 03/21/20 11:46 Lovenox - SQ 40 mg DAILY REA Administration Gabapentin 300 mg 03/20/20 22:00 03/21/20 11:46 Neurontin - PO 03/23/20 21:59 300 mg BID REA Administration Multivitamins/Minerals/Vitamin C 1 tab 03/21/20 10:00 03/21/20 11:46 Tab-A-Vit - PO 1 tab DAILY REA Administration Ondansetron HCl 4 mg 03/20/20 11:13 Zofran Injection IVPUSH Q6H PRN NAUSEA Oxycodone HCl 5 mg 03/20/20 11:13 03/21/20 07:17 Roxicodone - PO 5 mg Q4H PRN Administration PAIN LEVEL 4 - 6 Oxycodone HCl 10 mg 03/20/20 11:13 03/20/20 15:12 Roxicodone - PO 10 mg Q4H PRN Administration PAIN LEVEL 7 - 10 Pantoprazole Sodium 40 mg 03/21/20 10:00 03/21/20 11:46 Protonix - PO 40 mg DAILY REA Administration Promethazine HCl 12.5 mg 03/20/20 10:39 Phenergan Injection - IVPUSH Q6H PRN NAUSEA-FOR RESCUE AFTER 15 MIN Senna/Docusate Sodium 2 tablet 03/20/20 22:00 03/21/20 11:46 Pericolace - PO 2 tablet BID REA Administration Pre op Hgb 11.2 BUN 14 Cr 0.6 Intra op cefazolin 2g x 1 LR 1.1L ASSESSMENT/PLAN: 64 year-old female with a PMH significant for HTN, gastritis, and OA left knee s/p left total knee arthroplasty with robotic assistance today with Dr. Hampton. Left total knee arthroplasty --POD #1 --perioperative antibiotics complete --pain management per surgery, well-controlled --lovenox 40mg daily --protonix --bowel regimen Hypertension --continue enalapril Gastritis --protonix FEN Fluids: PO intake adequate Electrolytes: replete as indicated Nutrition: regular diet DVT prophylaxis: OOB, ambulation, SCDs, TEDs, subq lovenox Physical therapy Dispo: continues to require inpatient care. Full code. Visit type - Emergency Visit Emergency Visit: No - New Patient This patient is new to me today: No - Critical Care Critical Care patient: No - Medication Review Med list reviewed for High Risk Meds patients 65 and older: Yes
--- NOTE | 2020-03-22 06:20 | DS ---
Physical Exam: SUBJECTIVE: Patient seen and examined OBJECTIVE: Vital Signs Period Temp Pulse Resp BP Sys/Sánchez Pulse Ox Last 24 Hr 97.7 F-99.6 F 70-87 18-18 101-124/50-57 96-100 PHYSICAL EXAM GENERAL: Awake, alert, and fully oriented, in no acute distress. LUNGS: Breath sounds equal, clear to auscultation bilaterally. No wheezes, and no crackles. No accessory muscle use. HEART: Regular rate and rhythm, normal S1 and S2 ABDOMEN: Soft, nontender, not distended UPPER EXTREMITIES: 2+ pulses, warm, well-perfused. No cyanosis. No clubbing. No peripheral edema. LLE: surgical dressings c/d/i, +flex/extend toes, sensory intact NEUROLOGICAL: Cranial nerves II-XII intact. Normal speech. LABS Laboratory Results - last 24 hr 03/21/20 03/21/20 07:38 07:38 WBC 8.8 RBC 3.08 L Hgb 8.8 L Hct 27.0 L MCV 87.7 MCH 28.7 MCHC 32.8 RDW 13.9 Plt Count 260 MPV 8.3 Sodium 137 Potassium 4.3 Chloride 104 Carbon Dioxide 24 Anion Gap 9 BUN 13.0 Creatinine 0.6 Est GFR (CKD-EPI)AfAm 110.08 Est GFR (CKD-EPI)NonAf 94.98 Random Glucose 96 Calcium 8.6 Magnesium 1.8 HOSPITAL COURSE: Date of Admission:03/20/20 Date of Discharge: 03/22/20 64 year-old female with a PMH significant for HTN, gastritis, and OA left knee s/p left total knee arthroplasty with robotic assistance. Left total knee arthroplasty --perioperative antibiotics complete --pain management per surgery, well-controlled --lovenox 40mg daily while inpatient, discharge on ASA 81mg daily x 4 weeks Hypertension --continued enalapril Gastritis --protonix Minutes to complete discharge: 35 Discharge Summary Problems reviewed: Yes Reason For Visit: LEFT KNEE OSTEOARTHRITIS Current Active Problems Total knee replacement status (Acute) Condition: Improved - Instructions - Home Medications Comprehensive Discharge Medication List: Ambulatory Orders Enalapril Maleate [Vasotec -] 10 mg PO DAILY 03/20/20 This patient is new to me today: No Emergency Visit: No Critical Care patient: No - Discharge Referral Referred to [facility] Med P.C[facility] No
[2020-03-22 08:15] LABS: HEMATOCRIT 26.6 % (32.4-45.2); HEMOGLOBIN 8.9 GM/dl (10.7-15.3); MCH 29.1 pg (25.7-33.7); MCHC 33.3 g/dl (32.0-36.0); MEAN CELL VOLUME 87.5 fl (80-96); MEAN PLT VOLUME 8.2 fl (7.5-11.1); PLATELET COUNT 278 K/MM3 (134-434); RBC 3.05 M/mm3 (3.60-5.2); RDW 13.9 % (11.6-15.6); WHITE BLOOD COUNT 10.6 K/mm3 (4.0-10.8)
[2020-03-22] MEDS: PANTOPRAZOLE 40 MG TABLET PO SCH (09:28)
[2020-03-22] MEDS: MULTIVITAMINS (DAILY MVI) TABLET (FP) PO SCH (09:28)
[2020-03-22] MEDS: GABAPENTIN 300 MG CAPSULE PO SCH (09:28)
[2020-03-22] MEDS: SENNOSIDES/DOCUSATE COMBO (SENNA PLUS) TABLET (UD) PO SCH (09:28)
[2020-03-22] MEDS: ENALAPRIL MALEATE 10 MG TABLET PO SCH (09:28)
[2020-03-22] MEDS: ENOXAPARIN NA (PORCINE) 40 MG/0.4 ML DISP.SYRIN SQ SCH (09:29)
[2020-03-22] MEDS: oxyCODONE HCL 5 MG TABLET PO PRN (13:53)
[2020-03-22] MEDS: ACETAMINOPHEN 325 MG TABLET (FP) PO PRN (13:53)
[2020-03-22 14:20] VITALS: BP 131/54; PULSE 100; TEMP 100.5
--- NOTE | 2020-03-22 17:27 | PATH ---
Surgical Pathology Report Patient Name: TRISHA WEBB Med. Rec. #: [id number] /Age/Gender: 1955 (Age: 64) / F Account: [id number] Location: [facility] Taken: 03/20/2020 Received: 03/20/2020 Reported: 03/22/2020 Physicians: Sujit Hampton M.D. Specimen(s) Received LEFT KNEE BONE Clinical History Osteoarthritis Final Diagnosis BONES, KNEE, LEFT, TOTAL KNEE REPLACEMENT MAKOPLASTY: BONE WITH DEGENERATIVE JOINT DISEASE. Electronically Signed Aleah Dalton M.D. Gross Description Received in formalin labeled "left knee bones" is a 10 x 10 x 3 cm aggregate of multiple portions of bone and soft tissue. The tibial plateau measures 7 x 5 x 1.5 cm. There are focal areas of eburnation measuring 2.5 x 2 cm identified. The articular surface is levin-yellow and diffusely granular. The underlying trabecular bone is yellow and hard. Application Support Engineer sections submitted in one cassette, following decalcification. [email or web address]/03/21/2020 [email or web address]/03/21/2020
== END 2020-03-22 14:37 | disposition home or self-care (01) ==
LOC: FASUSAT 06:11 → FM/S 12:06 → FASUSAT 03-22 14:37
PROVIDERS: ATTEND Orthopaedic Surgery
PROC: 8E0YXBZ Computer Assisted Procedure of Lower Extremity (ICD-10-PCS; 2020-03-20)
PROC: 8E0Y0CZ Robotic Assisted Procedure of Lower Extremity, Open Approach (ICD-10-PCS; 2020-03-20)
PROC: 0SRD069 Replacement of Left Knee Joint with Oxidized Zirconium on Polyethylene Synthetic Substitute, Cemented, Open Approach (ICD-10-PCS; principal; 2020-03-20 08:30)
DX: I10 Essential (primary) hypertension (principal)
CPT/HCPCS: 20985; 27447; C1776; S2900; 36415; 73560-TC-LT-FY; 80048; 83735; 85027; 88305-TC; 88311-TC; 94760; 97010-GP; 97116-GP; 97163-GP

== ENCOUNTER 2020-09-03 06:42 | Day surgery (SDC) | payer MEDICARE, OTHER ==
[2020-08-29 10:46] VITALS: BMI 27.1
[2020-09-03] MEDS ORDERED: EPINEPHrine/PF 1 MG/1 ML (1:1,000) AMPULE ONE (07:03)
[2020-09-03] MEDS ORDERED: BUPIVACAINE HCL/PF 0.5% (5 MG/ML) 30 ML VIAL IJ ONE (07:03)
[2020-09-03] MEDS ORDERED: MIDAZOLAM HCL 2 MG/2 ML SINGLE DOSE VIAL ONE ×2 (07:03→08:35)
[2020-09-03] MEDS ORDERED: VANCOMYCIN 1,000 MG VIAL (RESTRICTED TO ID ONLY) ONE (07:22)
[2020-09-03] MEDS ORDERED: PROPOFOL 20 ML ONE ×2 (07:33)
[2020-09-03] MEDS ORDERED: ONDANSETRON 4 MG/2 ML VIAL ONE (07:34)
[2020-09-03] MEDS ORDERED: ceFAZolin SODIUM 1 GM VIAL ONE (07:34)
[2020-09-03] MEDS ORDERED: DEXAMETHASONE SOD PHOSPHATE 4 MG/1 ML VIAL ONE (07:34)
[2020-09-03] MEDS ORDERED: LIDOCAINE HCL/PF 2% SDV 5ML VIAL ONE (07:34)
[2020-09-03] MEDS ORDERED: KETOROLAC TROMETHAMINE 30 MG/1 ML VIAL ONE (07:34)
[2020-09-03] MEDS ORDERED: BUPIVICAINE 0.25%/MORPH PF/KETOROLAC - 51ML DISP.SYRINGE IA ONE ×2 (07:50→10:10)
[2020-09-03] MEDS ORDERED: TRANEXAMIC ACID 1000 MG/10 ML VIAL ONE (09:28)
[2020-09-03] MEDS ORDERED: SENNOSIDES/DOCUSATE COMBO (SENNA PLUS) TABLET (UD) PO PRN (10:48)
[2020-09-03] MEDS ORDERED: traMADol HCL 50 MG TABLET PO PRN (11:59)
[2020-09-03] MEDS ORDERED: ONDANSETRON 4 MG/2 ML VIAL IVPUSH PRN (11:59)
[2020-09-03] MEDS ORDERED: oxyCODONE HCL 5 MG TABLET PO PRN (11:59)
[2020-09-03] MEDS ORDERED: LACTATED RINGERS SOLUTION 1,000 ML IV SCH (12:00)
[2020-09-03] MEDS ORDERED: ACETAMINOPHEN 325 MG TABLET (FP) ONE (12:58)
[2020-09-03] MEDS: ACETAMINOPHEN 325 MG TABLET (FP) PO PRN ×2 (13:01→20:02)
[2020-09-03] MEDS: oxyCODONE HCL 5 MG TABLET PO PRN ×2 (16:17→20:01)
[2020-09-03] MEDS: ceFAZolin 2 GRAM PREMIX BAG IVPB SCH (17:25)
[2020-09-03 18:08] LABS: HEMATOCRIT 27.8 % (32.4-45.2); HEMOGLOBIN 9.1 GM/dl (10.7-15.3); MCH 27.4 pg (25.7-33.7); MCHC 32.6 g/dl (32.0-36.0); MEAN CELL VOLUME 83.9 fl (80-96); MEAN PLT VOLUME 7.9 fl (7.5-11.1); PLATELET COUNT 218 K/MM3 (134-434); RBC 3.31 M/mm3 (3.60-5.2); RDW 15.6 % (11.6-15.6); WHITE BLOOD COUNT 7.9 K/mm3 (4.0-10.8)
[2020-09-04] MEDS: ceFAZolin 2 GRAM PREMIX BAG IVPB SCH ×2 (01:35→09:01)
[2020-09-04] MEDS: ACETAMINOPHEN 325 MG TABLET (FP) PO PRN (06:24)
[2020-09-04 07:29] LABS: HEMATOCRIT 27.7 % (32.4-45.2); HEMOGLOBIN 9.1 GM/dl (10.7-15.3); MCH 27.7 pg (25.7-33.7); MCHC 32.9 g/dl (32.0-36.0); MEAN CELL VOLUME 84.2 fl (80-96); MEAN PLT VOLUME 8.7 fl (7.5-11.1); PLATELET COUNT 209 K/MM3 (134-434); RBC 3.29 M/mm3 (3.60-5.2); RDW 15.8 % (11.6-15.6); WHITE BLOOD COUNT 8.9 K/mm3 (4.0-10.8)
[2020-09-04] MEDS: oxyCODONE HCL 5 MG TABLET PO PRN ×2 (09:01→13:57)
[2020-09-04 09:15] VITALS: BP 110/55; PULSE 83
[2020-09-04 09:58] VITALS: TEMP 98.4
[2020-09-04] MEDS ORDERED: ENOXAPARIN NA (PORCINE) 40 MG/0.4 ML DISP.SYRIN SQ SCH (10:00)
[2020-09-04] MEDS ORDERED: ENALAPRIL MALEATE 10 MG TABLET PO SCH (10:00)
== END 2020-09-04 15:35 | disposition home or self-care (01) ==
LOC: FASUSAT 06:42 → EDSTATUS 08:00 → FM/S 13:24 → FASUSAT 13:24 → FM/S 13:49 → UNDOADMIN 13:51 → FM/S 14:50 → FASUSAT 09-04 15:35
PROVIDERS: ATTEND Orthopaedic Surgery
PROC: 0SR90J9 Replacement of Right Hip Joint with Synthetic Substitute, Cemented, Open Approach (ICD-10-PCS; principal; 2020-09-03 08:49)
DX: M16.11 Unilateral primary osteoarthritis, right hip (principal)
CPT/HCPCS: 27130; C1776; 36415; 73502-TC-RT-FY; 85027; 88305-TC; 88311-TC; 94760; 97010-GP; 97116-GP; 97162-GP

== ENCOUNTER 2022-04-27 10:50 | Inpatient (IN) | payer MEDICARE, OTHER ==
[2022-04-27] MEDS ORDERED: MAG HYDROX/AL HYDROX/SIMETH 30 ML UNIT-DOSE CUP PO ONE (12:53)
[2022-04-27] MEDS ORDERED: FAMOTIDINE 20 MG/50 ML IVPB 20 MG/50 ML MG IVPB ONE ×2 (12:53→13:27)
[2022-04-27] MEDS ORDERED: ASPIRIN 81 MG CHEWABLE TABLETS PO ONE (12:53)
[2022-04-27] MEDS ORDERED: MAG HYDROX/AL HYDROX/SIMETH 30 ML UNIT-DOSE CUP ONE (13:27)
[2022-04-27 13:45] LABS: INR 1.19 (0.83-1.09); PROTHROMBIN TIME (PATIENT) 13.7 SEC (9.7-13.0)
[2022-04-27 13:46] LABS: BASO % 0.7 % (0-2.0); EOS % 0.6 % (0-4.5); LYMPH % 12.8 % (8-40); MCHC 33.3 g/dl (32.0-36.0); MEAN CELL VOLUME 84.2 fl (80-96); MEAN PLT VOLUME 9.1 fl (7.5-11.1); MONO % 9.2 % (3.8-10.2); NEUT % 76.7 % (42.8-82.8); PLATELET COUNT 257 10^3/uL (134-434); RBC 3.92 M/mm3 (3.60-5.2); RDW 15.5 % (11.6-15.6)
[2022-04-27 13:48] LABS: ACTIVATED PTT 30.9 SECONDS (25.2-36.5)
[2022-04-27 14:08] LABS: CALCIUM 8.6 mg/dL (8.5-10.1)
[2022-04-27 14:09] LABS: ALBUMIN 3.1 g/dl (3.4-5.0); BLOOD UREA NITROGEN 10.7 mg/dL (7-18)
[2022-04-27 14:11] LABS: CREATININE 0.7 mg/dL (0.55-1.3)
[2022-04-27 14:13] LABS: BILIRUBIN,TOTAL 0.8 mg/dL (0.2-1); TOT PROT 6.7 g/dl (6.4-8.2)
[2022-04-27] MEDS ORDERED: ASPIRIN 81 MG CHEWABLE TABLETS ONE (14:17)
[2022-04-27 16:08] LABS: URINE APPEARANCE CLOUDY; URINE BILIRUBIN NEGATIVE (NEGATIVE); URINE COLOR YELLOW; URINE GLUCOSE (UA) NEGATIVE (NEGATIVE); URINE KETONE 1+ (NEGATIVE); URINE LEUK ESTERASE 2+ (NEGATIVE); URINE NITRITE POSITIVE (NEGATIVE); URINE PROTEIN NEGATIVE (NEGATIVE); URINE UROBILINOGEN 0.2 mg/dL (0.2-1.0)
[2022-04-27 18:16] LABS: EPI CELLS 4.3 /uL (0-25.1); HYALINE CASTS 0.12 /uL (0-3.1); URINE BACTERIA 9148.2 /uL (0-1359); URINE RBC 6.5 /uL (0-23.9)
[2022-04-27] MEDS ORDERED: CEFTRIAXONE 1,000 MG in DEXTROSE 5%-WATER - 50 ML IVPB ONE (19:54)
[2022-04-27] MEDS ORDERED: CEFTRIAXONE 1 GM/50 ML BAG ONE (20:24)
[2022-04-27] MEDS ORDERED: ACETAMINOPHEN 1000 MG/100 ML BAG IVPB PRN (22:04)
[2022-04-27] MEDS ORDERED: ONDANSETRON 4 MG/2 ML VIAL IVPUSH PRN (22:05)
[2022-04-28] MEDS: SODIUM CHLORIDE 1,000 ML IV SCH ×2 (01:32→06:19)
[2022-04-28 03:17] VITALS: BMI 33.7
[2022-04-28] MEDS ORDERED: CEFTRIAXONE 1 GM in DEXTROSE 5%-WATER - 50 ML IVPB SCH (10:00)
[2022-04-28] MEDS ORDERED: ENALAPRIL MALEATE 10 MG TABLET PO SCH (10:00)
[2022-04-28] MEDS ORDERED: DEXTROSE 5%-LACTATED RINGERS 1,000 ML IV SCH (10:15)
[2022-04-28] MEDS ORDERED: PANTOPRAZOLE 40 MG TABLET PO SCH (10:15)
[2022-04-28 12:02] LABS: BASO % 0.7 % (0-2.0); EOS % 0.9 % (0-4.5); HEMATOCRIT 31.2 % (32.4-45.2); HEMOGLOBIN 10.3 GM/dL (10.7-15.3); MCH 27.9 pg (25.7-33.7); MEAN CELL VOLUME 84.4 fl (80-96); MEAN PLT VOLUME 8.6 fl (7.5-11.1); MONO % 7.4 % (3.8-10.2); PLATELET COUNT 230 10^3/uL (134-434); RBC 3.69 M/mm3 (3.60-5.2); RDW 15.2 % (11.6-15.6); WHITE BLOOD COUNT 8.1 K/mm3 (4.0-10.0)
[2022-04-28 13:03] LABS: CALCIUM 8.1 mg/dL (8.5-10.1)
[2022-04-28 13:04] LABS: ALBUMIN 2.8 g/dl (3.4-5.0); BLOOD UREA NITROGEN 12.9 mg/dL (7-18); MAGNESIUM 2.1 mg/dL (1.8-2.4)
[2022-04-28 13:07] LABS: CREATININE 0.6 mg/dL (0.55-1.3); PHOSPHOROUS 3.3 mg/dL (2.5-4.9)
[2022-04-28 13:08] LABS: BILIRUBIN,TOTAL 0.7 mg/dL (0.2-1); TOT PROT 6.1 g/dl (6.4-8.2)
[2022-04-28] MEDS ORDERED: BUPIVACAINE HCL/PF 0.5% (5MG/ML) 10 ML VIAL ONE ×2 (14:12→14:41)
[2022-04-28] MEDS ORDERED: ONDANSETRON 4 MG/2 ML VIAL ONE (15:01)
[2022-04-28] MEDS ORDERED: LIDOCAINE HCL/PF 2% SDV 5ML VIAL ONE (15:01)
[2022-04-28] MEDS ORDERED: DEXAMETHASONE SOD PHOSPHATE 4 MG/1 ML VIAL ONE (15:01)
[2022-04-28] MEDS ORDERED: ROCURONIUM BROMIDE 50 MG/5 ML SYRINGE ONE (15:02)
[2022-04-28] MEDS ORDERED: FENTANYL CITRATE/PF 50 MCG/ML VIAL ONE ×2 (15:02→15:56)
[2022-04-28] MEDS ORDERED: PROPOFOL 20 ML ONE (15:02)
[2022-04-28] MEDS ORDERED: MIDAZOLAM HCL 2 MG/2 ML SINGLE DOSE VIAL ONE (15:02)
[2022-04-28] MEDS ORDERED: BUPIVACAINE HCL/PF 0.5% (5MG/ML) 10 ML VIAL IJ ONE ×2 (15:50)
[2022-04-28] MEDS ORDERED: NEOSTIGMINE METHYLSULFATE 0.5 MG/ML - 10 ML MDV ONE (16:26)
[2022-04-28] MEDS ORDERED: GLYCOPYRROLATE 0.2 MG/1 ML VIAL ONE (16:26)
[2022-04-28] MEDS ORDERED: oxyCODONE HCL 5 MG TABLET PO PRN ×2 (16:35→23:38)
[2022-04-28] MEDS ORDERED: ACETAMINOPHEN 1000 MG/100 ML BAG IVPB PRN (16:54)
[2022-04-28] MEDS ORDERED: ONDANSETRON 4 MG/2 ML VIAL IVPUSH PRN (16:54)
[2022-04-28] MEDS ORDERED: LACTATED RINGERS SOLUTION 1,000 ML IV SCH (17:00)
[2022-04-28] MEDS: DEXTROSE 5%-LACTATED RINGERS 1,000 ML IV SCH ×2 (19:30→20:09)
[2022-04-28] MEDS ORDERED: ACETAMINOPHEN 500 MG TABLET (FP) PO PRN (23:36)
[2022-04-28] MEDS ORDERED: IBUPROFEN 600 MG TABLET (FP) PO PRN (23:37)
[2022-04-29] MEDS: DEXTROSE 5%-LACTATED RINGERS 1,000 ML IV SCH ×2 (01:47→10:37)
[2022-04-29] MEDS ORDERED: PANTOPRAZOLE 40 MG TABLET PO SCH (10:00)
[2022-04-29] MEDS ORDERED: ENALAPRIL MALEATE 10 MG TABLET PO SCH (10:00)
[2022-04-29 11:14] LABS: INR 1.2 (0.83-1.09); PROTHROMBIN TIME (PATIENT) 13.8 SEC (9.7-13.0)
[2022-04-29 11:15] LABS: BASO % 0.2 % (0-2.0); HEMATOCRIT 33.2 % (32.4-45.2); HEMOGLOBIN 10.8 GM/dL (10.7-15.3); LYMPH % 5.7 % (8-40); MCH 27.5 pg (25.7-33.7); MCHC 32.4 g/dl (32.0-36.0); MEAN CELL VOLUME 84.7 fl (80-96); MEAN PLT VOLUME 8.9 fl (7.5-11.1); MONO % 7.3 % (3.8-10.2); NEUT % 86.8 % (42.8-82.8); PLATELET COUNT 278 10^3/uL (134-434); RBC 3.92 M/mm3 (3.60-5.2); RDW 15.1 % (11.6-15.6); WHITE BLOOD COUNT 12.6 K/mm3 (4.0-10.0)
[2022-04-29 11:51] LABS: ALBUMIN 2.8 g/dl (3.4-5.0)
[2022-04-29 11:54] LABS: BILIRUBIN,DIRECT 0.2 mg/dL (0.0-0.2)
[2022-04-29 11:55] LABS: TOT PROT 6.4 g/dl (6.4-8.2)
[2022-04-29 11:56] LABS: BILIRUBIN,TOTAL 0.6 mg/dL (0.2-1)
[2022-04-29 12:03] LABS: BLOOD UREA NITROGEN 9.8 mg/dL (7-18)
[2022-04-29 12:06] LABS: CREATININE 0.7 mg/dL (0.55-1.3)
[2022-04-29 14:03] VITALS: RESP 18; TEMP 98.1
[2022-04-29 14:30] VITALS: BP 137/72; PULSE 62
[2022-04-30 08:06] LABS: CARCINOEMBRYONIC ANTIGEN 2.8 ng/mL (0.0-4.7)
== END 2022-04-29 16:45 | disposition home or self-care (01) | DRG 342 ==
LOC: JER 10:50 → JERBED 19:55 → J6S 04-28 02:34
PROVIDERS: ADMIT Internal Medicine; ATTEND Nurse Practitioner Family
PROC: 0DTJ4ZZ Resection of Appendix, Percutaneous Endoscopic Approach (ICD-10-PCS; principal; 2022-04-28 15:00)
DX: K35.80 Unspecified acute appendicitis (principal); K86.2 Cyst of pancreas; N39.0 Urinary tract infection, site not specified; Q44.6 Cystic disease of liver; I10 Essential (primary) hypertension; K83.8 Other specified diseases of biliary tract; K76.89 Other specified diseases of liver
CPT/HCPCS: 0241U-QW; 36415; 71045-TC-FY; 74177-TC; 80048; 80053; 80076; 81003; 82105; 82150; 82378; 82728; 82977; 83516; 83540; 83550; 83690; 83735; 84100; 84484; 85025; 85610; 85730; 86038; 86140; 86301; 86682; 86753; 86850; 86900; 86901; 87086; 87186; 88304-TC; 93005; 93010; 94010; 94760; 99285-25; Q9967

== ENCOUNTER 2024-01-28 06:10 | Inpatient (IN) | payer MEDICARE, OTHER ==
[2024-01-28 06:47] VITALS: BMI 32.8
[2024-01-28] MEDS ORDERED: VANCOMYCIN 1,000 MG VIAL (RESTRICTED TO ID ONLY) ONE (07:12)
[2024-01-28] MEDS ORDERED: DEXAMETHASONE SOD PHOSPHATE 10 MG/1 ML VIAL ONE (07:13)
[2024-01-28] MEDS ORDERED: ROPIVACAINE HCL/PF 100 MG/20 ML VIAL ONE (07:13)
[2024-01-28] MEDS ORDERED: MIDAZOLAM HCL 2 MG/2 ML SINGLE DOSE VIAL ONE (07:13)
[2024-01-28] MEDS ORDERED: FENTANYL CITRATE/PF 50 MCG/ML VIAL ONE (07:13)
[2024-01-28] MEDS ORDERED: BUPIVACAINE HCL/PF 0.5% (5MG/ML) 10 ML VIAL ONE (07:48)
[2024-01-28] MEDS ORDERED: ceFAZolin SODIUM 1 GM VIAL ONE (08:13)
[2024-01-28] MEDS ORDERED: TRANEXAMIC ACID 1000 MG/10 ML VIAL ONE ×2 (08:13→09:37)
[2024-01-28] MEDS ORDERED: DEXAMETHASONE SOD PHOSPHATE 4 MG/1 ML VIAL ONE (08:13)
[2024-01-28] MEDS ORDERED: ONDANSETRON 4 MG/2 ML VIAL ONE (08:13)
[2024-01-28] MEDS ORDERED: PROPOFOL 20 ML ONE (08:17)
[2024-01-28] MEDS ORDERED: SUCCINYLCHOLINE CHLORIDE 200 MG/10 ML SYRINGE ONE (08:17)
[2024-01-28] MEDS ORDERED: BUPIVICAINE 0.25%/MORPH PF/KETOROLAC - 51ML DISP.SYRINGE IA ONE (08:36)
[2024-01-28] MEDS: VANCOMYCIN 1,000 MG VIAL (RESTRICTED TO ID ONLY) IVPB ONE (09:24)
[2024-01-28] MEDS: BUPIVACAINE HCL/PF 0.25% (2.5MG/ML) 10 ML VIAL IJ ONE ×2 (09:32)
[2024-01-28] MEDS: morphine SULFATE/PF 1 MG/2 ML (2cc Syringe - QUVA) EP ONE ×2 (09:32)
[2024-01-28] MEDS: KETOROLAC TROMETHAMINE 30 MG/1 ML VIAL IM ONE ×2 (09:32)
[2024-01-28] MEDS ORDERED: ONDANSETRON 4 MG/2 ML VIAL IVPUSH PRN (09:48)
[2024-01-28] MEDS ORDERED: ENALAPRIL MALEATE 10 MG TABLET PO SCH (10:00)
[2024-01-28] MEDS ORDERED: oxyCODONE HCL 5 MG TABLET PO PRN (10:10)
[2024-01-28] MEDS: KETOROLAC TROMETHAMINE 30 MG/1 ML VIAL IVPUSH SCH (10:29)
[2024-01-28] MEDS: ACETAMINOPHEN 1000 MG/100 ML BAG IVPB ONE (10:32)
[2024-01-28] MEDS ORDERED: ACETAMINOPHEN 325 MG TABLET (FP) PO PRN (15:00)
[2024-01-28] MEDS: LACTATED RINGERS SOLUTION 1,000 ML IV SCH (15:12)
[2024-01-28] MEDS: SODIUM CHLORIDE 1,000 ML IV SCH (15:12)
[2024-01-28] MEDS: CEFAZOLIN SODIUM 2 GM in DEXTROSE 5%-WATER 100 ML IVPB SCH (16:17)
[2024-01-28] MEDS: ACETAMINOPHEN 500 MG TABLET (FP) PO SCH (18:33)
[2024-01-29] MEDS: oxyCODONE HCL 5 MG TABLET PO PRN (06:39)
[2024-01-29] MEDS: ENOXAPARIN NA (PORCINE) 40 MG/0.4 ML DISP.SYRIN SQ SCH (06:40)
[2024-01-29 08:48] LABS: HEMOGLOBIN 9.4 G/dL (10.7-15.3); MCH 27.3 pg (25.7-33.7); MCHC 31.4 g/dl (32.0-36.0); MEAN CELL VOLUME 86.9 fl (80-96); MEAN PLT VOLUME 9.4 fl (7.5-11.1); PLATELET COUNT 219.7 10^3/uL (134-434); RBC 3.45 10^6/uL (3.60-5.2); WHITE BLOOD COUNT 13.8 10^3/uL (4.0-10.8)
[2024-01-29] MEDS: ENALAPRIL MALEATE 10 MG TABLET PO SCH (09:05)
[2024-01-29 09:34] LABS: CALCIUM 9.2 mg/dl (8.5-10.1); CREATININE 0.7 mg/dl (0.6-1.3); POTASSIUM 4.4 mmol/L (3.5-5.1)
[2024-01-30 08:55] LABS: HEMATOCRIT 29.2 % (32.4-45.2); HEMOGLOBIN 9.3 G/dL (10.7-15.3); MCH 27.6 pg (25.7-33.7); MCHC 31.8 g/dl (32.0-36.0); MEAN CELL VOLUME 86.7 fl (80-96); MEAN PLT VOLUME 9.1 fl (7.5-11.1); PLATELET COUNT 212.3 10^3/uL (134-434); RBC 3.37 10^6/uL (3.60-5.2); RDW 16.8 % (11.6-15.6); WHITE BLOOD COUNT 9.6 10^3/uL (4.0-10.8)
[2024-01-31 08:11] LABS: HEMATOCRIT 30.6 % (32.4-45.2); HEMOGLOBIN 9.6 G/dL (10.7-15.3); MCH 27.1 pg (25.7-33.7); MCHC 31.3 g/dl (32.0-36.0); MEAN CELL VOLUME 86.6 fl (80-96); MEAN PLT VOLUME 8.9 fl (7.5-11.1); PLATELET COUNT 239.7 10^3/uL (134-434); RBC 3.53 10^6/uL (3.60-5.2); WHITE BLOOD COUNT 9.5 10^3/uL (4.0-10.8)
[2024-01-31 09:02] VITALS: PULSE 76; RESP 18
[2024-01-31 14:17] VITALS: BP 113/64; TEMP 98.4
== END 2024-01-31 19:00 | DRG 470 ==
LOC: FM/S 06:10
PROVIDERS: ADMIT Orthopaedic Surgery; ATTEND Internal Medicine
PROC: 8E0Y0CZ Robotic Assisted Procedure of Lower Extremity, Open Approach (ICD-10-PCS; 2024-01-28)
PROC: 0SRB04A Replacement of Left Hip Joint with Ceramic on Polyethylene Synthetic Substitute, Uncemented, Open Approach (ICD-10-PCS; principal; 2024-01-28 08:16)
DX: M16.12 Unilateral primary osteoarthritis, left hip (principal); I10 Essential (primary) hypertension; M25.552 Pain in left hip
CPT/HCPCS: 36415; 71250-TC; 73502-TC-LT-FY; 80048; 85027; 87635; 88305-TC; 88311-TC; 94760; 97116-GP; 97163-GP; C1776; C1889; J0131; J1100

== ENCOUNTER 2024-02-13 23:47 | Inpatient (IN) | payer OTHER ==
[2024-02-14 02:02] LABS: VENOUS BASE EXCESS -1.3 mmol/L (-2-2); VENOUS O2 SATURATION 88.8 % (70-80); VENOUS PCO2 28.7 mmHg (38-52); VENOUS PH 7.498 (7.310-7.410)
[2024-02-14 02:03] LABS: BASO % 0.2 % (0-2.0); EOS % 0.1 % (0-4.5); HEMATOCRIT 19.9 % (32.4-45.2); LYMPH % 4.8 % (8-40); MCH 28.5 pg (25.7-33.7); MCHC 33.9 g/dl (32.0-36.0); MEAN CELL VOLUME 84.1 fl (80-96); MEAN PLT VOLUME 7.9 fl (7.5-11.1); MONO % 14.7 % (3.8-10.2); NEUT % 80.2 % (42.8-82.8); PLATELET COUNT 428 10^3/uL (134-434); RBC 2.37 M/mm3 (3.60-5.2); RDW 15.8 % (11.6-15.6)
[2024-02-14] MEDS ORDERED: ACETAMINOPHEN INJECTION 100 ML ONE (02:05)
[2024-02-14 02:06] LABS: HEMOGLOBIN 6.8 GM/dL (10.7-15.3); PH,URINE 6.5 (5.0-8.0); URINE APPEARANCE CLEAR; URINE BILIRUBIN NEGATIVE (NEGATIVE); URINE COLOR YELLOW; URINE GLUCOSE (UA) NEGATIVE (NEGATIVE); URINE KETONE NEGATIVE (NEGATIVE); URINE LEUK ESTERASE 1+ (NEGATIVE); URINE NITRITE NEGATIVE (NEGATIVE); URINE PROTEIN NEGATIVE (NEGATIVE)
[2024-02-14] MEDS ORDERED: VANCOMYCIN 1,000 MG VIAL (RESTRICTED TO ID ONLY) ONE (02:06)
[2024-02-14 02:30] LABS: POTASSIUM 3.9 mmol/L (3.5-5.1)
[2024-02-14 02:32] LABS: CALCIUM 8.1 mg/dL (8.5-10.1)
[2024-02-14 02:33] LABS: ALBUMIN 1.9 g/dl (3.4-5.0); BLOOD UREA NITROGEN 17.2 mg/dL (7-18)
[2024-02-14 02:36] LABS: CREATININE 0.6 mg/dL (0.55-1.3)
[2024-02-14 02:37] LABS: BILIRUBIN,TOTAL 0.7 mg/dL (0.2-1)
[2024-02-14 02:38] LABS: TOT PROT 5.4 g/dl (6.4-8.2)
[2024-02-14] MEDS: VANCOMYCIN 1,000 MG in DEXTROSE 5%-WATER - 250 ML IVPB ONE (02:46)
[2024-02-14] MEDS: ACETAMINOPHEN 1000 MG/100 ML BAG IVPB ONE (02:58)
[2024-02-14] MEDS: CEFEPIME HCL 1 GM VIAL (RESTRICTED TO ID) IVPB ONE (03:31)
[2024-02-14 09:11] VITALS: BMI 29.5
[2024-02-14] MEDS: ACETAMINOPHEN 325 MG TABLET (FP) PO PRN (09:26)
[2024-02-14] MEDS: VANCOMYCIN/WATER FOR INJ (PEG) 1 GM/200 ML BAG IVPB SCH (16:14)
[2024-02-14] MEDS: PIPERACILLIN/TAZOB 3.375 GM 3.375 GM in DEXTROSE 5%-WATER - 50 ML IVPB SCH (18:20)
[2024-02-14 23:24] LABS: HEMATOCRIT 28.8 % (32.4-45.2); HEMOGLOBIN 9.5 G/dL (10.7-15.3); MCH 28.8 pg (25.7-33.7); MCHC 33.1 g/dl (32.0-36.0); MEAN CELL VOLUME 87.1 fl (80-96); MEAN PLT VOLUME 7.5 fl (7.5-11.1); PLATELET COUNT 495.3 10^3/uL (134-434); RBC 3.31 10^6/uL (3.60-5.2); WHITE BLOOD COUNT 11.9 10^3/uL (4.0-10.8)
[2024-02-15] MEDS: VANCOMYCIN/WATER FOR INJ (PEG) 1,000 MG/200 ML BAG IVPB SCH (02:59)
[2024-02-15 08:34] LABS: INR 1.34 (0.83-1.09); PROTHROMBIN TIME (PATIENT) 15.1 SEC (9.7-13.0)
[2024-02-15 09:08] LABS: ALBUMIN 2.7 g/dl (3.4-5.0); BILIRUBIN,TOTAL 1.8 mg/dl (0.2-1); CALCIUM 8.3 mg/dl (8.5-10.1); CREATININE 0.7 mg/dl (0.6-1.3); PHOSPHOROUS 3.9 (2.5-4.9); POTASSIUM 4.3 mmol/L (3.5-5.1); TOT PROT 5.5 g/dl (6.4-8.2)
[2024-02-15] MEDS ORDERED: PIPERACILLIN/TAZOBACTAM 3.375 GM VIAL IVPB ONE (09:27)
[2024-02-15] MEDS: FUROSEMIDE 40 MG/4 ML INJECTABLE VIAL IVPUSH ONE (09:52)
[2024-02-15 09:53] LABS: BASO % 0.6 % (0-2.0); EOS % 0.1 % (0-4.5); HEMATOCRIT 27.6 % (32.4-45.2); HEMOGLOBIN 9.5 GM/dL (10.7-15.3); LYMPH % 5.6 % (8-40); MCH 28.8 pg (25.7-33.7); MCHC 34.4 g/dl (32.0-36.0); MEAN CELL VOLUME 83.6 fl (80-96); MEAN PLT VOLUME 7.5 fl (7.5-11.1); MONO % 11.4 % (3.8-10.2); NEUT % 82.3 % (42.8-82.8); PLATELET COUNT 583 10^3/uL (134-434); RDW 15.2 % (11.6-15.6); WHITE BLOOD COUNT 11.7 K/mm3 (4.0-10.0)
[2024-02-15 16:03] LABS: CHOLESTEROL 86 mg/dL (50-200); HDL CHOLESTEROL 23 mg/dL (40-60); LDL CHOLESTEROL (ONLY DFH) 43 mg/dL (5-100)
[2024-02-15 17:33] LABS: N-TERMINAL BNP 2223.2 pg/ml (5-125)
[2024-02-16 08:51] LABS: ALBUMIN 2.7 g/dl (3.4-5.0); BILIRUBIN,TOTAL 1.4 mg/dl (0.2-1); CALCIUM 8.2 mg/dl (8.5-10.1); CREATININE 0.6 mg/dl (0.6-1.3); POTASSIUM 4.1 mmol/L (3.5-5.1); TOT PROT 5.5 g/dl (6.4-8.2)
[2024-02-16 11:15] LABS: BASO % 0.4 % (0-2.0); EOS % 0.1 % (0-4.5); HEMATOCRIT 26.4 % (32.4-45.2); HEMOGLOBIN 9.1 GM/dL (10.7-15.3); MCH 29.5 pg (25.7-33.7); MCHC 34.7 g/dl (32.0-36.0); MEAN CELL VOLUME 85.1 fl (80-96); MEAN PLT VOLUME 7.3 fl (7.5-11.1); MONO % 11.8 % (3.8-10.2); NEUT % 82.7 % (42.8-82.8); PLATELET COUNT 586 10^3/uL (134-434); RDW 15.6 % (11.6-15.6); WHITE BLOOD COUNT 12.1 K/mm3 (4.0-10.0)
[2024-02-16] MEDS: VANCOMYCIN/WATER FOR INJ (PEG) 1,000 MG/200 ML BAG IVPB SCH (14:47)
[2024-02-16] MEDS: CEFEPIME 1 GM in DEXTROSE 5%-WATER 100 ML IVPB SCH (16:03)
[2024-02-16] MEDS: VANCOMYCIN 1,000 MG in DEXTROSE 5%-WATER - 250 ML IVPB SCH (16:03)
[2024-02-16] MEDS: CEFEPIME HCL 1 GM VIAL (RESTRICTED TO ID) IVPB SCH (16:03)
[2024-02-16 17:22] LABS: BILIRUBIN,DIRECT 0.8 mg/dL (0.0-0.2)
[2024-02-16] MEDS: FUROSEMIDE 40 MG/4 ML INJECTABLE VIAL IVPUSH ONE (17:31)
[2024-02-17 08:39] LABS: ALBUMIN 2.6 g/dl (3.4-5.0); BILIRUBIN,TOTAL 1.3 mg/dl (0.2-1); CREATININE 0.6 mg/dl (0.6-1.3); POTASSIUM 3.2 mmol/L (3.5-5.1); TOT PROT 5.3 g/dl (6.4-8.2)
[2024-02-17] MEDS: POTASSIUM CHLORIDE TABS 20 MEQ TABLET.ER (FP) PO ONE (10:33)
[2024-02-17] MEDS: ACETAMINOPHEN 325 MG TABLET (FP) PO PRN (14:47)
[2024-02-18 10:55] LABS: INR 1.42 (0.83-1.09)
[2024-02-18 11:02] LABS: HEMATOCRIT 27.3 % (32.4-45.2); HEMOGLOBIN 8.6 G/dL (10.7-15.3); MCH 27.2 pg (25.7-33.7); MCHC 31.3 g/dl (32.0-36.0); MEAN CELL VOLUME 87.1 fl (80-96); PLATELET COUNT 593.4 10^3/uL (134-434); RBC 3.14 10^6/uL (3.60-5.2); RDW 17.1 % (11.6-15.6); WHITE BLOOD COUNT 13.4 10^3/uL (4.0-10.8)
[2024-02-18 11:18] LABS: ALBUMIN 2.6 g/dl (3.4-5.0); BILIRUBIN,TOTAL 1.2 mg/dl (0.2-1); CALCIUM 8.3 mg/dl (8.5-10.1); CREATININE 0.7 mg/dl (0.6-1.3); POTASSIUM 3.7 mmol/L (3.5-5.1); TOT PROT 5.3 g/dl (6.4-8.2)
[2024-02-18 11:42] LABS: ALBUMIN 2.6 g/dl (3.4-5.0); BILIRUBIN,DIRECT 0.7 mg/dL (0.0-0.2); BILIRUBIN,TOTAL 1.2 mg/dl (0.2-1); TOT PROT 5.3 g/dl (6.4-8.2)
[2024-02-18] MEDS: SODIUM CHLORIDE 250 ML IV STA (12:46)
[2024-02-18] MEDS: DEXTROSE 5%-NORMAL SALINE 1,000 ML IV SCH (12:46)
[2024-02-18 17:20] VITALS: BP 123/67; PULSE 68; RESP 19; TEMP 99.8
== END 2024-02-18 17:22 | disposition short-term general hospital (02) | DRG 559 ==
LOC: FER 23:47 → FM/S 02-14 02:22
PROVIDERS: ADMIT Internal Medicine
PROC: 30233N1 Transfusion of Nonautologous Red Blood Cells into Peripheral Vein, Percutaneous Approach (ICD-10-PCS; principal; 2024-02-14)
DX: T84.52XA Infection and inflammatory reaction due to internal left hip prosthesis, initial encounter (principal); A41.89 Other specified sepsis; E87.1 Hypo-osmolality and hyponatremia; R50.9 Fever, unspecified; I10 Essential (primary) hypertension; K29.60 Other gastritis without bleeding; D64.9 Anemia, unspecified; K76.89 Other specified diseases of liver; B96.5 Pseudomonas (aeruginosa) (mallei) (pseudomallei) as the cause of diseases classified elsewhere; B95.7 Other staphylococcus as the cause of diseases classified elsewhere; Z96.653 Presence of artificial knee joint, bilateral; Z96.643 Presence of artificial hip joint, bilateral; Y83.8 Other surgical procedures as the cause of abnormal reaction of the patient, or of later complication, without mention of misadventure at the time of the procedure; X58.XXXA Exposure to other specified factors, initial encounter
CPT/HCPCS: 0241U-QW; 36415; 36430; 71045-TC-FY; 71275-TC; 73502-TC-LT-FY; 73702-TC-RT; 74177-TC; 80053; 80061; 80076; 81003; 82248; 82272; 82436; 82533; 82728; 82803; 83036; 83540; 83550; 83605; 83690; 83735; 83880; 83930; 83935; 84100; 84133; 84300; 84443; 84484; 85025; 85027; 85610; 85651; 86140; 86850; 86900; 86901; 86922; 87040; 87070; 87086; 87186; 87205; 93005; 93306-TC; 93971-TC; 97116-GP; 97162-GP; 99285-25; G0480; J0131; P9058; Q9967

== ENCOUNTER 2024-03-14 07:53 | Emergency (ER) | payer OTHER ==
[2024-03-14] MEDS ORDERED: morphine CARPU-JECT 4 MG/1 ML DISP.SYRIN IVPUSH ONE (08:05)
[2024-03-14 08:07] VITALS: TEMP 98.2; BMI 31.2
[2024-03-14 08:47] LABS: HEMATOCRIT 31.2 % (32.4-45.2); HEMOGLOBIN 9.8 G/dL (10.7-15.3); MCHC 31.5 g/dl (32.0-36.0); MEAN PLT VOLUME 7.7 fl (7.5-11.1); RBC 3.51 10^6/uL (3.60-5.2); RDW 18.5 % (11.6-15.6); WHITE BLOOD COUNT 10.2 10^3/uL (4.0-10.8)
[2024-03-14 09:04] LABS: INR 1.07 (0.83-1.09); PROTHROMBIN TIME (PATIENT) 12.2 SEC (9.7-13.0)
[2024-03-14 09:07] LABS: ACTIVATED PTT 31.7 SECONDS (25.2-36.5)
[2024-03-14 09:21] LABS: ALBUMIN 2.9 g/dl (3.4-5.0); ALK PHOS 213 U/L (45-117); ANION GAP 7 mmol/L (4-13); BILIRUBIN,TOTAL 0.9 mg/dl (0.2-1); CALCIUM 9.1 mg/dl (8.5-10.1); CHLORIDE 102 mmol/L (98-107); CO2 28 mmol/L (21-32); CREATININE 0.4 mg/dl (0.6-1.3); GLUCOSE,RANDOM 114 mg/dl (74-106); POTASSIUM 3.6 mmol/L (3.5-5.1); SGOT/AST 57 U/L (15-37); SGPT/ALT 51 U/L (7-52); SODIUM 137 mmol/L (136-145); TOT PROT 5.9 g/dl (6.4-8.2)
[2024-03-14 09:46] LABS: PLATELET ESTIMATE ADEQUATE
[2024-03-14] MEDS ORDERED: KETAMINE HCL 100 MG/ML - 5ML VIAL ONE (11:26)
[2024-03-14] MEDS ORDERED: PROPOFOL 1,000,000 MCG/100 ML VIAL ONE (11:27)
[2024-03-14] MEDS ORDERED: PROPOFOL 20 ML ONE (11:29)
[2024-03-14] MEDS ORDERED: KETAMINE HCL 200 MG/20 ML VIAL ONE (11:29)
[2024-03-14] MEDS: PROPOFOL 200 MG/20 ML VIAL IVPUSH ONE (11:35)
[2024-03-14] MEDS: KETAMINE HCL 200 MG/20 ML VIAL IVPUSH ONE (12:08)
[2024-03-14 12:16] VITALS: BP 140/84; PULSE 90; RESP 20
== END 2024-03-14 15:19 | disposition home or self-care (01) ==
LOC: FER 07:53
PROC: 0SSB3ZZ Reposition Left Hip Joint, Percutaneous Approach (ICD-10-PCS; principal; 2024-03-14)
PROC: 3E033GC Introduction of Other Therapeutic Substance into Peripheral Vein, Percutaneous Approach (ICD-10-PCS; 2024-03-14)
PROC: 3E033GC Introduction of Other Therapeutic Substance into Peripheral Vein, Percutaneous Approach (ICD-10-PCS; 2024-03-14)
DX: T84.021A Dislocation of internal left hip prosthesis, initial encounter (principal); W06.XXXA Fall from bed, initial encounter
CPT/HCPCS: 27265; 36415; 71045-TC-FY; 73502-TC-LT-FY; 73552-TC-LT-FY; 80053; 85027; 85610; 85730; 86850; 86900; 86901; 93005; 96374; 96375; 99285-25